=== PATIENT | male | born 1965 | race African-American/Black ===

== ENCOUNTER 2023-05-01 09:40 | Inpatient (IN) ==
[2023-05-01 11:08] LABS: Basophils # (auto) 0.04 K/uL (0.00-0.20); Basophils % (auto) 0.4 %; Eosinophils # (auto) 0.13 K/uL (0.00-0.50); Eosinophils % (auto) 1.1 %; Hematocrit (blood only) 44.1 % (42.0-52.0); Hemoglobin 15.1 g/dl (14.0-18.0); Immature Granulocytes # (auto) 0.03 K/uL (0.01-0.20); Immature Granulocytes % (auto) 0.3 %; Lymphocytes % (auto) 14.1 %; Mean Corpuscular Hemoglobin 30.2 pg (25.0-34.0); Mean Corpuscular Hgb Conc 34.2 g/dL (32.0-36.0); Mean Corpuscular Volume 88.2 fL (80.0-100.0); Mean Platelet Volume 10.4 fL (9.4-12.4); Neutrophils # (auto) 8.61 K/uL (1.40-6.50); Neutrophils % (auto) 76.1 %; Platelet Count 313 K/uL (130-400); RDW Coefficient of Variation 12.4 % (11.5-14.5); RDW Standard Deviation 40.4 fL (36.4-46.3); White Blood Count 11.31 K/ul (4.8-10.8)
[2023-05-01 11:15] LABS: Appearance Urine Clear (Clear); Bacteria Urine Automated Negative (Negative); Blood Urine Negative (Negative); Color Urine Dark Yellow; Epithelial Cell Urine Auto 20-30 /lpf (0-5); Glucose Urine UA Negative (Negative); Ketones Urine Trace (Negative); Leukocyte Esterase Urine Trace (Negative); Nitrite Urine Negative (Negative); Protein Urine Trace (Negative); RBC Urine Automated 0-4 /hpf (0-4); Urobilinogen Urine Negative (Negative)
[2023-05-01 11:19] LABS: Albumin Globulin Ratio 1.2 (0.9-2); Albumin Level 4.5 gm/dl (3.4-5.0); Bilirubin,Total 1.2 mg/dl (0.2-1.0); Calcium 10.2 mg/dl (8.6-10.3); Creatinine Clr Calc Pharmacy 97.7 ml/min; Est GFR (African American) 75.6 ml/min; Est GFR (Non-African American) 65.2 ml/min; Globulin 3.8 gm/dl (2.5-4.0); Total Protein 8.3 gm/dl (6.0-8.3)
[2023-05-01 11:20] LABS: Bilirubin Urine 1+ (Negative)
[2023-05-01] MEDS ORDERED: OPTIRAY 320 125ml IV ONE (11:49)
[2023-05-01] MEDS ORDERED: SODIUM CHLORIDE 0.9% 1,000 ML IV ONE (11:49)
--- NOTE | 2023-05-01 12:01 | Emergency Department Note ---
Impression & Plan Lower abdominal pain, Acute appendicitis, Nausea, Leukocytosis ED Provider Note NAME: YANNICK WREN AGE: 57 SEX: M : 1965 ARRIVES VIA: Walk-In INFORMANT: [Patient] ED PROVIDER(S): [Hal Azul MD] CHIEF COMPLAINT: Abdominal pain HISTORY OF PRESENT ILLNESS: The patient is a 57-year-old male with 3 or 4 days of lower and somewhat right- sided abdominal pain. The pain does not radiate to the back. He had some nausea and decreased appetite but no vomiting. No diarrhea. No fever or chills, no cough or congestion. He has no history of previous abdominal surgery. He has had diverticulitis in the past although, his pain today does not feel like his previous diverticulitis. The patient has been using Tylenol for pain, it has helped a little. PMHx/PSHx/Social Hx: See Below PHYSICAL EXAM: GENERAL: Patient is in no acute distress. HEENT: No acute trauma, normocephalic atraumatic, mucous membranes moist, no nasal congestion. NECK: No stridor, no adenopathy, no meningismus, trachea is midline. LUNGS: Clear to auscultation bilaterally, no wheeze, no rhonchi, breath sounds equal. Breath sounds diminished bilaterally. HEART: Without murmurs gallops or rubs, regular rate and rhythm. ABDOMEN: Soft, tender to the mid lower right abdomen, no distention or peritonitis. EXTREMITIES: No cyanosis, full range of motion of all the joints without pain or difficulty. NEUROLOGIC: Oriented x 3, no acute motor or sensory deficits, no focal weakness. SKIN: No jaundice, no diaphoresis. DIFFERENTIAL DIAGNOSIS: Diverticulitis, appendicitis, viral illness, musculoskeletal pain, UTI, biliary colic, among others. EMERGENCY DEPARTMENT PROCEDURES: MEDICAL DECISION MAKING: There is a mild leukocytosis, this would be consistent with infection. There was a normal hemoglobin and platelet count. No renal failure or significant electrolyte abnormality. No concerning liver enzyme elevation. No evidence for pancreatitis. Urinalysis did not show findings of infection. Abdominal and pelvis CT shows findings of acute appendicitis with an appendicolith. No appendix rupture. On exam, the patient was somewhat tender in the lower abdomen, more so to the right. There was no true peritonitis, the patient was not toxic or febrile. Patient received IV Zosyn as antibiotic coverage. He was given IV Zofran for nausea, IV saline for hydration. I did speak with Dr. Mills of general surgery. The patient will be seen for appendectomy. The patient is aware of his findings, case management was consulted. Prior/Outside records/notes reviewed: Family practice note from 11/05/2022 discussing his ongoing chronic conditions and the plan moving forward. Imaging/x-ray results per my interpretation: Chronic Medical/Social conditions affecting care: Care/Management discussed with: General surgery-Dr. Mills, case management. Level of care consideration(s): After review of the information above and other included data: --I believe the patient requires escalation of care to admission DISPOSITION: Admission with surgical consult Past Med/Surg History Medical History Calculus of left kidney Hyperlipidemia Type 2 diabetes mellitus Hypertension Surgical History H/O oral surgery S/P wisdom tooth extraction S/P tonsillectomy S/P hernia surgery Family History Mother Diabetes Hypertension Denies family history of Ovarian cancer Prostate cancer Myocardial infarction Breast cancer Colorectal cancer Social History Smoking Status: Never smoker Second Hand Exposure: No; Do You Dip or Chew Tobacco: No; Hx Alcohol Use: No Hx Substance Use: No Preferred Language: Honduran Communication Ability: Effective Visual Impairment: No Limitations Hearing Ability: Normal Editorial Director Required: No Beliefs That Will Affect Care: None marital status: Current Living Situation: Alone current occupational status: employed 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 How many Children do You have: 3 Other Information That Helps Us Care for You: No Feels Safe at Home: Yes Childhood Exposure to Second-Hand Smoke: Yes Diet: regular caffeine: Yes during the past year weight has: remained stable Dental Care, Regularly: Yes Physical Activity Frequency: Does not Exercise Seatbelt Use: always Sunscreen Use: No Do you think of yourself as: straight/heterosexual Assistive Devices: Glasses Allergies Allergies Allergy/AdvReac Type Severity Reaction Status Date / Time No Known Allergies Allergy Verified 05/01/23 18:55 Home Meds Home Medications Medication Instructions Recorded Confirmed aspirin 81 mg tablet,delayed 81 mg PO QAM 06/29/19 05/01/23 release multivitamin (Daily Multi-Vitamin 1 tab PO QAM 06/29/19 05/01/23 tablet) omega-3 fatty acids 1,000 mg 1,000 mg PO QAM 06/29/19 05/01/23 capsule (Fish Oil Concentrate) amlodipine 5 mg tablet 5 mg PO QAM 05/01/23 05/01/23 atenolol 100 mg tablet 100 mg PO QAM 05/01/23 05/01/23 lisinopril 20 mg tablet 20 mg PO QAM 05/01/23 05/01/23 lisinopril 20 1 tab PO QAM 05/01/23 05/01/23 mg-hydrochlorothiazide 25 mg tablet metformin 500 mg tablet,extended 1,000 mg PO BID 05/01/23 05/01/23 release 24hr (osmotic) spironolactone 25 mg tablet 25 mg PO QAM 05/01/23 05/01/23 Results & Data (ED) Vital Signs Vital Signs - 24 hr 05/01/23 09:48 05/01/23 12:00 05/01/23 13:24 Temperature 37 C 36.9 C Temperature Source Temporal Artery Scan Oral Pulse Rate 74 Pulse Rate [Right Finger] 78 70 Pulse Rhythm [Right Finger] Regular Regular Pulse Strength [Right Finger] Normal Normal Respiratory Rate 22 22 20 Respiratory Effort / Characteristics Non-Labored Spontaneous Non-Labored Spontaneous Respiratory Depth Normal Normal Normal Respiratory Pattern Regular Regular Regular Blood Pressure 149/100 H Blood Pressure [Left Arm] 144/96 H 147/82 H Blood Pressure Mean 116 Blood Pressure Mean [Left Arm] 112 103 Blood Pressure Position Sitting Blood Pressure Position [Left Arm] Sitting Semi-fowlers Pulse Oximetry 98 97 93 Oxygen Delivery Method Room Air Room Air Room Air Sepsis Recent Fever Within 48 Hours No Sepsis New/Unexplained Change in Mental Status No Sepsis Action Taken by Nursing No Action Required Home Medications Current Medication List: was personally reviewed by me Laboratory Data Attestation: I reviewed the patient's lab results. 05/01/23 10:44 05/01/23 10:44 Lab Results 05/01/23 05/01/23 Range/Units 10:44 13:28 WBC 11.31 H (4.8-10.8) K/ul RBC 5.00 (4.70-6.10) M/uL Hgb 15.1 (14.0-18.0) g/dl Hct 44.1 (42.0-52.0) % MCV 88.2 (80.0-100.0) fL MCH 30.2 (25.0-34.0) pg MCHC 34.2 (32.0-36.0) g/dL RDW Std Deviation 40.4 (36.4-46.3) fL RDW Coeff of Melody 12.4 (11.5-14.5) % Plt Count 313 (130-400) K/uL MPV 10.4 (9.4-12.4) fL Immature Gran % (Auto) 0.3 % Neut % (Auto) 76.1 % Lymph % (Auto) 14.1 % [place] % (Auto) 8.0 % Eos % (Auto) 1.1 % Baso % (Auto) 0.4 % Neut # (Auto) 8.61 H (1.40-6.50) K/uL Lymph # (Auto) 1.60 (1.20-3.40) K/uL [place] # (Auto) 0.90 H (0.11-0.59) K/uL Eos # (Auto) 0.13 (0.00-0.50) K/uL Baso # (Auto) 0.04 (0.00-0.20) K/uL Immature Gran # (Auto) 0.03 (0.01-0.20) K/uL Sodium 136 (136-145) mmol/L Potassium 4.0 (3.5-5.1) mmol/L Chloride 96 L (98-107) mmol/L Carbon Dioxide 33 H (21-32) mmol/L Anion Gap 7 (3-11) BUN 16 (6-23) mg/dl Creatinine 1.23 (0.6-1.4) mg/dl Est Cr Clr Drug Dosing 97.7 ml/min Est GFR ( Amer) 75.6 ml/min Est GFR (Non-Af Amer) 65.2 ml/min BUN/Creatinine Ratio 13.0 (10-20) Glucose 150 H (70-99(Fasting)) mg/dl POC Glucose 163 H (70-99) mg/dl Calcium 10.2 (8.6-10.3) mg/dl Total Bilirubin 1.2 H (0.2-1.0) mg/dl AST 16 (13-39) U/L ALT 20 (7-52) U/L Alkaline Phosphatase 58 (34-104) U/L Total Protein 8.3 (6.0-8.3) gm/dl Albumin 4.5 (3.4-5.0) gm/dl Globulin 3.8 (2.5-4.0) gm/dl Albumin/Globulin Ratio 1.2 (0.9-2) Lipase 20 (11-82) U/L Administered Medications Lactated Ringer's (Lr) 1,000 mls @ 80 mls/hr IV .[id number] GURPREET Stop: 05/31/23 16:29 Last Admin: 05/01/23 18:45 Dose: 80 mls/hr Documented By: IRENA Discontinued Medications Bacitracin (Bacitracin Oint 14 Gm Tube) Confirm Administered Dose 45 appln .ROUTE .STK-MED ONE Stop: 05/01/23 13:28 Last Admin: 05/01/23 16:02 Dose: 45 appln Documented By: [id number] Bupivacaine HCl (Bupivacaine 0.5 % 5 Mg/1 Ml Mpf 30ml Vial) Confirm Administered Dose 30 ml .ROUTE .STK-MED ONE Stop: 05/01/23 13:28 Last Admin: 05/01/23 16:00 Dose: 10 ml Documented By: [id number] Sodium Chloride (Nss) 1,000 mls @ 999 mls/hr IV .Q1H1M ONE Stop: 05/01/23 12:49 Last Infusion: 05/01/23 18:12 Dose: Infused Documented By: Admin: 05/01/23 12:44 Dose: 999 mls/hr Documented By: STEPHANIE Piperacillin Sod/Tazobactam Sod (Zosyn) 4.5 gm in 120 mls @ 240 mls/hr IV NOW ONE Stop: 05/01/23 12:48 Last Infusion: 05/01/23 13:59 Dose: Infused Documented By: Admin: 05/01/23 12:43 Dose: 240 mls/hr Documented By: STEPHANIE Ioversol (Optiray 320 125ml) 89 ml IV ONCE ONE Stop: 05/01/23 11:50 Last Admin: 05/01/23 11:49 Dose: 89 ml Documented By: ABBY Lidocaine HCl (Lidocaine 1% Local 20 Ml Vial) Confirm Administered Dose 20 ml .ROUTE .STK-MED ONE Stop: 05/01/23 13:29 Last Admin: 05/01/23 16:01 Dose: 10 ml Documented By: [id number] Ondansetron HCl (Ondansetron Inj 2 Mg/Ml 2 Ml Vial) 4 mg IV NOW STA Stop: 05/01/23 12:32 Last Admin: 05/01/23 12:43 Dose: 4 mg Documented By: STEPHANIE Imaging Data Radiologist's Impression: Abdomen/Pelvis CT 05/01/23 11:[address] WITH IV CONTRAST CT DOSE: 1437.03 mGy.cm HISTORY: Acute right lower quadrant abdominal pain right sided pain TECHNIQUE: Multiaxial CT images of the abdomen and pelvis were performed following the IV administration of 89 cc of Optiray, A dose lowering technique was utilized adhering to the principles of ALARA. COMPARISON STUDY: 04/11/2022 FINDINGS: Mild cardiomegaly. No acute process of the imaged lower chest. No free air. Unremarkable spleen, pancreas and adrenal glands. Liver measures up to 17.4 cm in length. Hepatic steatosis. No evidence of cirrhosis. Patency of the hepatic and portal veins. Unremarkable gallbladder. No biliary ductal dilation. 1.4 cm nonobstructing calculus in the inferior pole left kidney. Mild cortical scarring with parenchymal thinning of the interpolar right kidney. No ureteral calculi or hydronephrosis. Decompressed urinary bladder with circumferential wall thickening. Atherosclerosis of the abdominal aorta. No lymphadenopathy. No bowel obstruction or bowel wall thickening. Colonic diverticulosis. 1.4 cm mid appendiceal appendicolith. The appendix is dilated and fluid-filled with mucosal hyperemia and wall thickening overall measuring up to 1.7 cm. Periappendiceal inflammation with trace free fluid and reactive adjacent ileocolic lymph nodes. No abscess. Unremarkable soft tissues. No acute fracture. IMPRESSION: 1. Acute appendicitis with appendicolith. 2. No pneumoperitoneum or abscess. 3. Hepatomegaly with hepatic steatosis. 4. Colonic diverticulosis. 5. Left nephrolithiasis. ACT 112: Negative or not required by law. The above report was generated using voice recognition software. It may contain grammatical, syntax or spelling errors. Electronically signed by: Devin Goodrich M.D. 05/01/2023 12:11 PM Discharge Plan Visit Data Chief Complaint: Abdominal Pain Stated Complaint: ABD PAIN, NAUSEA ED Provider: Hal Azul Discharge Problem: Lower abdominal pain, Acute appendicitis, Nausea, Leukocytosis Patient Disposition: Admitted As Inpatient Condition: Fair Discharge Instructions Interventions: ED Discharge Assessment Last Done: 05/01/23 13:12 Discharge Problem: Acute appendicitis Qualifiers: Acute appendicitis type: other Qualified Code(s): K35.890 - Other acute appendicitis without perforation or gangrene Leukocytosis Qualifiers: Leukocytosis type: unspecified Qualified Code(s): D72.829 - Elevated white blood cell count, unspecified
--- NOTE | 2023-05-01 12:12 | CT Scan Report ---
ABDOMEN AND PELVIS CT WITH IV CONTRAST CT DOSE: 1437.03 mGy.cm HISTORY: Acute right lower quadrant abdominal pain right sided pain TECHNIQUE: Multiaxial CT images of the abdomen and pelvis were performed following the IV administrat ion of 89 cc of Optiray, A dose lowering technique was utilized adhering to the principles of ALARA. COMPARISON STUDY: 04/11/2022 FINDINGS: Mild cardiomegaly. No acute process of the imaged lower chest. No free air. Unremarkable sp alanis, pancreas and adrenal glands. Liver measures up to 17.4 cm in length. Hepatic steatosis. No evid ence of cirrhosis. Patency of the hepatic and portal veins. Unremarkable gallbladder. No biliary duct al dilation. 1.4 cm nonobstructing calculus in the inferior pole left kidney. Mild cortical scarring with parenchy mal thinning of the interpolar right kidney. No ureteral calculi or hydronephrosis. Decompressed urin pao bladder with circumferential wall thickening. Atherosclerosis of the abdominal aorta. No lymphade nopathy. No bowel obstruction or bowel wall thickening. Colonic diverticulosis. 1.4 cm mid appendiceal appendi colith. The appendix is dilated and fluid-filled with mucosal hyperemia and wall thickening overall m easuring up to 1.7 cm. Periappendiceal inflammation with trace free fluid and reactive adjacent ileoc olic lymph nodes. No abscess. Unremarkable soft tissues. No acute fracture. IMPRESSION: 1. Acute appendicitis with appendicolith. 2. No pneumoperitoneum or abscess. 3. Hepatomegaly with hepatic steatosis. 4. Colonic diverticulosis. 5. Left nephrolithiasis. ACT 112: Negative or not required by law. The above report was generated using voice recognition software. It may contain grammatical, syntax o r spelling errors. Electronically signed by: Devin Goodrich M.D. 05/01/2023 12:11 PM
[2023-05-01] MEDS ORDERED: PIPERACILLIN/TAZOBACTAM 4.5 GM/120 ML BAG IV ONE (12:19)
[2023-05-01] MEDS ORDERED: ONDANSETRON INJ 2 MG/ML 2 ML VIAL IV STA (12:31)
--- NOTE | 2023-05-01 12:46 | Surgery Consultation ---
Date of Consultation May 01, 2023 Assessment & Plan (1) Acute appendicitis: Assessment: Patient is 57 years old gentleman who presented to ED with a 4-day history lower abdominal pain, with nausea. Patient had a CT scan diagnosis of acute appendicitis with appendicolith. Plan: Based on patient history physical exam, labs and CT scan finding. I recommend to do a laparoscopy appendectomy possible open. I did talk to patient about the benefit the risk and alternate of the procedure I indicated the risks may include prepped not limited such as a bleeding, infection,abscess, injury other organs, CT, DVT, patient understood. They agree to proceed the surgery. Patient signed informed consent. I answered all questions.pre-op iv antibiotic. History of Present Illness Reason for Consultation: Acute appendicitis Requesting Physician: Hal zAul MD History of Present Illness CC: Abdominal pain HPI: Patient is a 57 years old gentleman with a past medical history of obesity, type 2 diabetes, hypertension, obstructive sleep apnea ,PVC, hyperlipidemia, and calculus of the left kidney. Patient presented to ED with 4 days history low abdominal pain. The pain located the right lower quadrant area. the pain is dull. The pain is not radiated to the back. Patient has some nausea. Patient denies vomiting. No diarrhea, fever or chills. Patient had a CT scan diagnosis of acute appendicitis. Allergies Allergy/AdvReac Type Severity Reaction Status Date / Time No Known Allergies Allergy Verified 11/05/22 10:49 Home Medications Medication Instructions Recorded Confirmed Type aspirin 81 mg tablet,delayed 81 mg PO DAILY 06/29/19 11/05/22 History release multivitamin (Daily Multi-Vitamin 1 tab PO DAILY 06/29/19 11/05/22 History tablet) omega-3 fatty acids 1,000 mg 1,000 mg PO DAILY 06/29/19 11/05/22 History capsule (Fish Oil Concentrate) atenolol 100 mg tablet 100 mg PO DAILY #90 tabs 08/13/22 11/05/22 Rx amlodipine 5 mg tablet 5 mg PO DAILY #90 tabs 10/26/22 11/05/22 Rx lisinopril 20 mg tablet 20 mg PO DAILY #90 tabs 10/26/22 11/05/22 Rx spironolactone 25 mg tablet See Rx Instructions .Route 10/26/22 11/05/22 Rx .COMPLEX #30 tabs metformin 500 mg tablet,extended 2,000 mg (4 x 500 mg) PO DAILY 30 11/05/22 11/05/22 Rx release 24hr (osmotic) days #120 tabs lisinopril 20 See Rx Instructions .Route 01/08/23 Rx mg-hydrochlorothiazide 25 mg tablet .COMPLEX #90 tabs amoxicillin 875 mg-potassium 1 tab PO BID #20 tabs 04/07/23 Rx clavulanate 125 mg tablet Patient History Medical History (Updated 05/01/23 @ 12:54 by Jazmin Mills MD) No pertinent past medical history Surgical History H/O oral surgery S/P wisdom tooth extraction S/P tonsillectomy S/P hernia surgery Family History Mother Diabetes Hypertension Denies family history of Ovarian cancer Prostate cancer Myocardial infarction Breast cancer Colorectal cancer Social History Smoking Status: Never smoker Second Hand Exposure: No; Do You Dip or Chew Tobacco: No; Hx Alcohol Use: No Hx Substance Use: No Preferred Language: Kinyarwanda Communication Ability: Effective Visual Impairment: No Limitations Hearing Ability: Normal 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 marital status: Current Living Situation: Alone current occupational status: employed 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 How many Children do You have: 3 Feels Safe at Home: Yes Childhood Exposure to Second-Hand Smoke: Yes Diet: regular caffeine: Yes during the past year weight has: remained stable Dental Care, Regularly: Yes Physical Activity Frequency: Does not Exercise Seatbelt Use: always Sunscreen Use: No Do you think of yourself as: straight/heterosexual Assistive Devices: Glasses Review of Systems Constitutional: Obesity Eyes: as per Subjective / HPI Respiratory: as per Subjective / HPI (Obstructive sleep apnea) Cardiovascular: Additional Comments: HTN, PVC, hyperlipidemia Gastrointestinal: as per Subjective / HPI Genitourinary: + problem reported (Left kidney stone) Neurologic: as per Subjective / HPI Psychiatric: as per Subjective / HPI Endocrine: Type 2 diabetes Hematologic / Lymphatic: as per Subjective / HPI Physical Exam Constitutional: WD/WN, vitals as above Obesity Eyes: PERRL, conjunctivae normal, anicteric sclerae Neck: trachea midline, no thyromegaly Respiratory: normal respiratory effort, lungs clear to auscultation Cardiovascular: RRR, no murmur, no edema Gastrointestinal (Abdomen): soft, tenderness at RLQ, no rebound pain, no distend, BS +. Musculoskeletal: no cyanosis or clubbing, extremities motor strength 5/5 Neurologic: patellar DTR's 2+ bilat, sensation intact Psychiatric: A+Ox3, euthymic affect Results & Data Vital Signs (Past 12 Hours) Vital Signs Temp Pulse Resp BP Pulse Ox O2 Del Method 05/01/23 09:48 37 C 74 22 149/100 H 98 Room Air Laboratory Results Lab Results 05/01/23 05/01/23 Range/Units 10:44 Unknown WBC 11.31 H (4.8-10.8) K/ul RBC 5.00 (4.70-6.10) M/uL Hgb 15.1 (14.0-18.0) g/dl Hct 44.1 (42.0-52.0) % MCV 88.2 (80.0-100.0) fL MCH 30.2 (25.0-34.0) pg MCHC 34.2 (32.0-36.0) g/dL RDW Std Deviation 40.4 (36.4-46.3) fL RDW Coeff of Melody 12.4 (11.5-14.5) % Plt Count 313 (130-400) K/uL MPV 10.4 (9.4-12.4) fL Immature Gran % (Auto) 0.3 % Neut % (Auto) 76.1 % Lymph % (Auto) 14.1 % [place] % (Auto) 8.0 % Eos % (Auto) 1.1 % Baso % (Auto) 0.4 % Neut # (Auto) 8.61 H (1.40-6.50) K/uL Lymph # (Auto) 1.60 (1.20-3.40) K/uL [place] # (Auto) 0.90 H (0.11-0.59) K/uL Eos # (Auto) 0.13 (0.00-0.50) K/uL Baso # (Auto) 0.04 (0.00-0.20) K/uL Immature Gran # (Auto) 0.03 (0.01-0.20) K/uL Sodium 136 (136-145) mmol/L Potassium 4.0 (3.5-5.1) mmol/L Chloride 96 L (98-107) mmol/L Carbon Dioxide 33 H (21-32) mmol/L Anion Gap 7 (3-11) BUN 16 (6-23) mg/dl Creatinine 1.23 (0.6-1.4) mg/dl Est Cr Clr Drug Dosing 97.7 ml/min Est GFR ( Amer) 75.6 ml/min Est GFR (Non-Af Amer) 65.2 ml/min BUN/Creatinine Ratio 13.0 (10-20) Glucose 150 H (70-99(Fasting)) mg/dl Calcium 10.2 (8.6-10.3) mg/dl Total Bilirubin 1.2 H (0.2-1.0) mg/dl AST 16 (13-39) U/L ALT 20 (7-52) U/L Alkaline Phosphatase 58 (34-104) U/L Total Protein 8.3 (6.0-8.3) gm/dl Albumin 4.5 (3.4-5.0) gm/dl Globulin 3.8 (2.5-4.0) gm/dl Albumin/Globulin Ratio 1.2 (0.9-2) Lipase 20 (11-82) U/L Urine Color Dark Yellow Urine Appearance Clear (Clear) Urine pH 6.0 (4.5-7.5) Ur Specific [place] 1.030 (1.000-1.030) Urine Protein Trace H (Negative) Urine Glucose (UA) Negative (Negative) Urine Ketones Trace H (Negative) Urine Blood Negative (Negative) Urine Nitrite Negative (Negative) Urine Bilirubin 1+ H (Negative) Urine Urobilinogen Negative (Negative) Ur Leukocyte Esterase Trace H (Negative) Urine WBC (Auto) 1-5 (0-5) /hpf Urine RBC (Auto) 0-4 (0-4) /hpf U Hyaline Cast (Auto) 1-5 (0-5) /lpf U Epithel Cells (Auto) 20-30 H (0-5) /lpf Urine Bacteria (Auto) Negative (Negative) Diagnostic Findings ABDOMEN AND PELVIS CT WITH IV CONTRAST CT DOSE: 1437.03 mGy.cm HISTORY: Acute right lower quadrant abdominal pain right sided pain TECHNIQUE: Multiaxial CT images of the abdomen and pelvis were performed following the IV administration of 89 cc of Optiray, A dose lowering technique was utilized adhering to the principles of ALARA. COMPARISON STUDY: 04/11/2022 FINDINGS: Mild cardiomegaly. No acute process of the imaged lower chest. No free air. Unremarkable spleen, pancreas and adrenal glands. Liver measures up to 17.4 cm in length. Hepatic steatosis. No evidence of cirrhosis. Patency of the hepatic and portal veins. Unremarkable gallbladder. No biliary ductal dilation. 1.4 cm nonobstructing calculus in the inferior pole left kidney. Mild cortical scarring with parenchymal thinning of the interpolar right kidney. No ureteral calculi or hydronephrosis. Decompressed urinary bladder with circumferential wall thickening. Atherosclerosis of the abdominal aorta. No lymphadenopathy. No bowel obstruction or bowel wall thickening. Colonic diverticulosis. 1.4 cm mid appendiceal appendicolith. The appendix is dilated and fluid-filled with mucosal hyperemia and wall thickening overall measuring up to 1.7 cm. Periappendiceal inflammation with trace free fluid and reactive adjacent ileocolic lymph nodes. No abscess. Unremarkable soft tissues. No acute fracture. IMPRESSION: 1. Acute appendicitis with appendicolith. 2. No pneumoperitoneum or abscess. 3. Hepatomegaly with hepatic steatosis. 4. Colonic diverticulosis. 5. Left nephrolithiasis. ACT 112: Negative or not required by law. The above report was generated using voice recognition software. It may contain grammatical, syntax or spelling errors. Electronically signed by: Devin Goodrich M.D. 05/01/2023 12:11 PM Dictated: 05/01/23 1202 Transcribed: 05/01/23 1202
--- NOTE | 2023-05-01 12:59 | History & Physical Bridge Note ---
Date of Service May 01, 2023 History & Physical Bridge Note I have examined the patient, reviewed the History & Physical and in the interval since the performance of the History & Physical I have noted the following changes of clinical significance: no changes noted
[2023-05-01] MEDS ORDERED: fentaNYL citrate PF 100 MCG/2 ML VIAL IV PRN (13:09)
[2023-05-01] MEDS ORDERED: ATROPINE SULFATE 0.1 MG/ML 10ML SYR IV PRN (13:09)
[2023-05-01] MEDS ORDERED: ONDANSETRON INJ 2 MG/ML 2 ML VIAL IV PRN (13:09)
[2023-05-01] MEDS ORDERED: ePHEDrine sulfate 50 MG/ML AMP IV PRN (13:09)
[2023-05-01] MEDS ORDERED: ACETAMINOPHEN 1000 MG/100 ML IV IV ONE (13:25)
[2023-05-01] MEDS ORDERED: BUPIVACAINE 0.5 % 5 MG/1 ML MPF 30ML VIAL ONE (13:27)
[2023-05-01] MEDS ORDERED: BACITRACIN OINT 14 GM TUBE ONE (13:27)
[2023-05-01] MEDS ORDERED: LIDOCAINE 1% LOCAL 20 ML VIAL ONE (13:28)
--- NOTE | 2023-05-01 13:31 | Anesthesiology Consultation ---
Date of Service May 01, 2023 Assessment & Plan Chart Review Chart Review: Acceptable Risk for Surgery Consults Requested none ASA [id number] Proposed Anesthesia Anesthesia Type: General Risk / Benefits Reviewed With: PT / POA / Parent / Guardian, Accepts Plan and Informed Consent Obtained History Surgery Operation Date: 05/01/23 10:40 Proposed Procedures p Laparoscopic Appendectomy - Jazmin Mills MD Height/Weight Height: 5 ft 10 in Weight: 148 kg Allergies Allergy/AdvReac Type Severity Reaction Status Date / Time No Known Allergies Allergy Verified 11/05/22 10:49 Medications Home Medications Medication Instructions Recorded Confirmed Last Taken aspirin 81 mg tablet,delayed 81 mg PO DAILY 06/29/19 11/05/22 Unknown release multivitamin (Daily Multi-Vitamin 1 tab PO DAILY 06/29/19 11/05/22 Unknown tablet) omega-3 fatty acids 1,000 mg 1,000 mg PO DAILY 06/29/19 11/05/22 Unknown capsule (Fish Oil Concentrate) atenolol 100 mg tablet 100 mg PO DAILY #90 tabs 08/13/22 11/05/22 Unknown amlodipine 5 mg tablet 5 mg PO DAILY #90 tabs 10/26/22 11/05/22 Unknown lisinopril 20 mg tablet 20 mg PO DAILY #90 tabs 10/26/22 11/05/22 Unknown spironolactone 25 mg tablet See Rx Instructions .Route 10/26/22 11/05/22 Unknown .COMPLEX #30 tabs metformin 500 mg tablet,extended 2,000 mg (4 x 500 mg) PO DAILY 30 11/05/22 11/05/22 Unknown release 24hr (osmotic) days #120 tabs lisinopril 20 See Rx Instructions .Route 01/08/23 Unknown mg-hydrochlorothiazide 25 mg tablet .COMPLEX #90 tabs amoxicillin 875 mg-potassium 1 tab PO BID #20 tabs 04/07/23 Unknown clavulanate 125 mg tablet NPO Date Last Intake of Fluids: 04/30/23 Time Last Intake of Fluids: 11:00 Date Last Intake of Solids: 04/30/23 Time Last Intake of Solids: 11:00 Past Medical History Medical History No pertinent past medical history Exercise / Class Metabolic Activity II 4-5 Yardwork/Stairs/Walk up hill Past Family History Family History Mother Diabetes Hypertension Denies family history of Ovarian cancer Prostate cancer Myocardial infarction Breast cancer Colorectal cancer Past Surgical History Surgical History H/O oral surgery S/P wisdom tooth extraction S/P tonsillectomy S/P hernia surgery Past Anesthesia History No Hx of Anesthesia Complications and No Family Hx of Anesthesia Complications History of PONV No Hx of PONV and No Hx of Motion Sickness Social History Smoking Status: Never smoker Do You Dip or Chew Tobacco: No Hx Alcohol Use: No Hx Substance Use: No Physical Exam Vital Signs Last Vital Signs Temp 98.4 F 05/01/23 13:24 Pulse 70 05/01/23 13:24 Resp 20 05/01/23 13:24 BP 147/82 H 05/01/23 13:24 Pulse Ox 93 05/01/23 13:24 O2 Del Method Room Air 05/01/23 13:24 ENMT Mouth: no dentition abnormality Thyromental Distance: > or= 3.5 Finger Breadths Mallampati Class: II Neck normal visual inspection Respiratory normal respiratory effort Auscultation: lungs clear to auscultation bilaterally Cardiovascular Rate/Rhythm: regular rate and regular rhythm Testing Laboratory Results 05/01/23 10:44 05/01/23 10:44 Urine Color Dark Yellow 05/01/23 Unknown Urine Appearance Clear (Clear) 05/01/23 Unknown Urine pH 6.0 (4.5-7.5) 05/01/23 Unknown Ur Specific [place] 1.030 (1.000-1.030) 05/01/23 Unknown Urine Protein Trace (Negative) H 05/01/23 Unknown Urine Glucose (UA) Negative (Negative) 05/01/23 Unknown Urine Ketones Trace (Negative) H 05/01/23 Unknown Urine Nitrite Negative (Negative) 05/01/23 Unknown Ur Leukocyte Esterase Trace (Negative) H 05/01/23 Unknown Urine WBC (Auto) 1-5 /hpf (0-5) 05/01/23 Unknown Urine RBC (Auto) 0-4 /hpf (0-4) 05/01/23 Unknown U Hyaline Cast (Auto) 1-5 /lpf (0-5) 05/01/23 Unknown U Epithel Cells (Auto) 20-30 /lpf (0-5) H 05/01/23 Unknown Urine Bacteria (Auto) Negative (Negative) 05/01/23 Unknown 05/01/23 13:28 POC Glucose 163 H
[2023-05-01] MEDS ORDERED: MIDAZOLAM HCL 1 MG/ML 2ML VIAL ONE (13:40)
[2023-05-01] MEDS ORDERED: fentaNYL citrate PF 100 MCG/2 ML VIAL ONE (13:40)
[2023-05-01] MEDS ORDERED: LIDOCAINE 2% 2 ML VIAL/AMP(20MG/ML) INFIL ONE (13:40)
[2023-05-01] MEDS ORDERED: ROCURONIUM BROMIDE 10 MG/ML 5 ML VIAL IV ONE ×2 (13:40→14:34)
[2023-05-01] MEDS ORDERED: PROPOFOL IV EMULSION 10 MG/ML 20 ML VIAL IV ONE (13:40)
[2023-05-01] MEDS ORDERED: SUCCINYLCHOLINE CHLORIDE 20 MG/ML 10 ML VIAL IV ONE (13:49)
[2023-05-01] MEDS ORDERED: PHENYLEPHRINE 100MCG/ML 10ML SYR IV ONE (14:18)
[2023-05-01] MEDS ORDERED: ePHEDrine sulfate 50 MG/5 ML SYR ONE (14:43)
[2023-05-01] MEDS ORDERED: KETOROLAC 30 MG/ML VIAL ONE (15:53)
[2023-05-01] MEDS ORDERED: SUGAMMADEX SODIUM 200 MG/2 ML VIAL IV ONE (16:00)
[2023-05-01] MEDS ORDERED: ONDANSETRON INJ 2 MG/ML 2 ML VIAL ONE (16:02)
--- NOTE | 2023-05-01 16:11 | Post Operative Brief Note ---
Immediate Post Op Note v1 Date of Surgery May 01, 2023 Pre & Post Diagnosis Operation Date: 05/01/23 10:40 Pre-Op Diagnosis: Acute appendicitis Post-Op Diagnosis: Acute appendicitis I identified the patient and participated in the time-out.: Yes Procedure Operation Date: 05/01/23 10:40 Actual Procedures p Laparoscopic Appendectomy(Not Applicable) - Jazmin Mills MD Surgeon Jazmin Mills MD Environmental Construction Engineer certified ophthalmic surgical assistant Estimated Blood Loss 10 Findings Consistent with Post-Op Diagnosis acute appendicitis, significant inflammation on appendix , some pus around appendix, possible micro-perforation Fluids 1200ml Specimens appendix Drains Hung Catheter and Eliot-Antonio Drain Anesthesia Type General Complications none Disposition Accompanied Patient To Recovery: Yes
[2023-05-01] MEDS ORDERED: HYDROmorphone INJ 0.5 MG/0.5 ML SYR IV PRN (16:16)
[2023-05-01] MEDS ORDERED: LACTATED RINGER'S 1,000 ML IV SCH (16:30)
--- NOTE | 2023-05-01 17:55 | Operative Report ---
Post Operative Report Pre & Post Diagnosis Operation Date: 05/01/23 10:40 Pre-Op Diagnosis: Acute appendicitis Post-Op Diagnosis: Acute appendicitis I identified the patient and participated in the time-out.: Yes Procedure Operation Date: 05/01/23 10:40 Actual Procedures p Laparoscopic Appendectomy(Not Applicable) - Jazmin Mills MD Surgeon Jazmin Mills MD Pattern Mechanic neurosurgical nurse practitioner Estimated Blood Loss 10 Findings Consistent with Post-Op Diagnosis acute appendicitis, significant inflammation on appendix, some pus on surface appendix, possible micro-perforation. Fluids 1200ml Specimens appendix Drains YAMEL x1 Anesthesia Type General Complications none Indications Patient is a 57 years old gentleman presented to ED with a 4-day history lower abdominal pain. Patient had a CT scan diagnosis of acute appendicitis. I recommend to do a laparoscopy appendectomy possible open. I did talk to patient about the benefit the risk and alternate of the procedure. The risks may include but not limited such as a bleeding, infection, abscess. injury other organs. incision hernia, CT, DVT, pt understood, he agreed with the surgery, he signed informed consent, I answered all questions. Description of Procedure After we identified patient to verify procedure. We brought patient to the OR. Put the patient on the supine position on the OR table. Patient received a SCD on bilateral legs to prevent DVT. Also patient received 2 gram cefoxitin IV for prophylactic antibiotic. Patient received general anesthesia without difficulty. pt had Hung catheter insertion to drainage urine. The abdomen was propped and dropped in routine sterile fashion. After timeout. I injections of local anesthesia by using 1% lidocaine mixed with 0.5% Marcaine just above the umbilical area. The make a small incisions as above umbilical, open fascia and peritoneum under direct vision. put The Martinez trocar in. Connected to CO2 to create pneumoperitoneum, the flow rate is 6 L/min. Pressure no more than 14 mmHg. Once get nice pneumoperitoneum. Put the laparoscopy in to take look around the abdomen. Significant inflammation on the right lower quadrant area. then we put other two 5 mm trocars on the left lower quadrant area. one 5 mm trocar at RUQ area. We used a grasper to to hold cecum area. We found the patient had enlarge appendix with inflammation on appendix, some pus on surface of appendix, possible micro-perforation. which confirm diagnosis acute appendicitis. We mobilized the appendix by using a harmonic to take down the appendiceal. I used the 45 mm Endo CUCA staple transection on the base of appendix. With double identified the base of appendix. Recheck and no active bleeding or leak from staplers. I also check stapler line on cecum. I did not feel any remnant appendolithiasis. We remove appendix through the catheter bag. then re-inserted a Martinez trocar IN and connected to CO2 to create pneumoperitoneum again. based on significant inflammation on appendix , possible micro- perforation, I decided to place 10mm YAMEL drainage at near appendix stapler line. 2-0 silk fix the YAMEL at skin. Hemostat is obtained. We removed all trocars under direct vision no active bleeding from trocar site. Pneumoperitoneum was released. Close umbilical incision fascia layer by using 0 Vicryl [id number] x2. Closed subcutaneous layer by using 2-0 Vicryl interrupted. Close skin by using 4-0 Vicryl. Close another 5 mm trocar site the skin only by use of 4-0 Vicryl. Put the dressing on. Remove Hung catheter. Patient tolerated procedure well. All instrument needle sponge count correct x2 in the case. Patient was transferred to recovery room in stable condition. Specimen sent to pathology. After procedure I did talk to patient about the OR finding and the procedure we did. pt understood. I attest to the content of the Intraoperative Record and any orders documented therein. Any exceptions are noted below.
--- NOTE | 2023-05-01 17:59 | Anesthesiology Progress Note ---
Date of Service May 01, 2023 Anesthesia Post Procedure Vital Signs Vital Signs: Temp Pulse Pulse Pulse Resp BP BP 05/01/23 17:25 64 18 05/01/23 17:10 67 21 05/01/23 16:55 37.2 C 70 22 05/01/23 16:45 70 22 05/01/23 16:35 68 22 05/01/23 16:25 36.6 C 74 16 05/01/23 13:24 36.9 C 70 20 147/82 H 05/01/23 12:00 78 22 144/96 H 05/01/23 09:48 37 C 74 22 149/100 H BP Pulse Ox O2 Del Method O2 Flow Rate 05/01/23 17:25 119/65 94 Nasal Cannula 2 05/01/23 17:10 127/73 95 Nasal Cannula 2 05/01/23 16:55 122/74 94 Nasal Cannula 2 05/01/23 16:45 125/77 93 Nasal Cannula 2 05/01/23 16:35 129/79 98 Oxymask 7 05/01/23 16:25 137/79 98 Oxymask 7 05/01/23 13:24 93 Room Air 05/01/23 12:00 97 Room Air 05/01/23 09:48 98 Room Air Transfer of Care Handoff Completed per policy Notes Mental Status: alert / awake / arousable and participated in evaluation Patient Amnestic to Procedure: Yes Nausea / Vomiting: adequately controlled Pain: adequately controlled Airway Patency, RR, SpO2: stable & adequate BP & HR: stable & adequate Hydration State: stable & adequate Anesthetic Complications: no major complications apparent and Pt Satisfied with anesthetic care
[2023-05-01] MEDS: SODIUM CHLORIDE 0.9% 1,000 ML IV SCH (19:30)
[2023-05-01] MEDS: PIPERACILLIN/TAZOBACTAM 4.5 GM in DEXTROSE 5% MINI-B 100 ML IV SCH (20:01)
[2023-05-02] MEDS: oxyCODONE/ACETAMINOPHEN 5mg/325mg TAB PO PRN ×3 (00:03→17:24)
[2023-05-02] MEDS: PIPERACILLIN/TAZOBACTAM 4.5 GM in DEXTROSE 5% MINI-B 100 ML IV SCH ×3 (03:18→19:31)
[2023-05-02 06:42] LABS: Basophils # (auto) 0.02 K/uL (0.00-0.20); Basophils % (auto) 0.2 %; Eosinophils # (auto) 0.08 K/uL (0.00-0.50); Eosinophils % (auto) 0.8 %; Hematocrit (blood only) 38.8 % (42.0-52.0); Hemoglobin 12.7 g/dl (14.0-18.0); Immature Granulocytes # (auto) 0.05 K/uL (0.01-0.20); Immature Granulocytes % (auto) 0.5 %; Lymphocytes # (auto) 0.93 K/uL (1.20-3.40); Lymphocytes % (auto) 8.9 %; Mean Corpuscular Hemoglobin 29.8 pg (25.0-34.0); Mean Corpuscular Hgb Conc 32.7 g/dL (32.0-36.0); Mean Corpuscular Volume 91.1 fL (80.0-100.0); Mean Platelet Volume 10.1 fL (9.4-12.4); Monocytes # (auto) 0.78 K/uL (0.11-0.59); Monocytes % (auto) 7.5 %; Neutrophils # (auto) 8.59 K/uL (1.40-6.50); Neutrophils % (auto) 82.1 %; Platelet Count 262 K/uL (130-400); RDW Coefficient of Variation 12.7 % (11.5-14.5); Red Blood Count 4.26 M/uL (4.70-6.10); White Blood Count 10.45 K/ul (4.8-10.8)
[2023-05-02 06:50] LABS: Albumin Globulin Ratio 1.2 (0.9-2); Albumin Level 3.8 gm/dl (3.4-5.0); BUN Creatinine Ratio 14.9 (10-20); Bilirubin,Total 0.8 mg/dl (0.2-1.0); Calcium 8.8 mg/dl (8.6-10.3); Creatinine Clr Calc Pharmacy 89.7 ml/min; Est GFR (African American) 68.2 ml/min; Est GFR (Non-African American) 58.8 ml/min; Globulin 3.2 gm/dl (2.5-4.0); Potassium 4.3 mmol/L (3.5-5.1)
--- NOTE | 2023-05-02 07:18 | Hospitalist Consultation ---
Date of Consultation May 02, 2023 Assessment & Plan (1) Acute appendicitis: Taken to the OR 05/[address] continues on Zosyn therapy Surgery has started diet clear liquids. Pain is controlled (2) Type 2 diabetes mellitus: typically on metformin, will follow and start SSI if needed (3) Hypertension: typically on amlodipine, atenolol, lisinopril/ hydrochlorothiazide spironolactone currently on hold with lower blood pressure with exception of low-dose atenolol to avoid rebound tachycardia History of Present Illness Attending Physician: Jazmin Mills MD History of Present Illness 57-year-old male presents to the ER with 3 to 4 days of lower abdominal pain on the right side with nausea. History of diabetes controlled with metformin and hypertension. Previous diverticulitis did not feel like this. Patient was afebrile white count was 11.3, CT scan showed acute appendicitis with no pneumoperitoneum or abscess. In the operative report however does cite possibility of microperforation with pus on the surface of the appendix Patient mid on the surgical service medical consultation to control diabetes and hypertension at this time Allergies Allergy/AdvReac Type Severity Reaction Status Date / Time No Known Allergies Allergy Verified 05/01/23 18:55 Home Medications Medication Instructions Recorded Confirmed Type aspirin 81 mg tablet,delayed 81 mg PO QAM 06/29/19 05/01/23 History release multivitamin (Daily Multi-Vitamin 1 tab PO QAM 06/29/19 05/01/23 History tablet) omega-3 fatty acids 1,000 mg 1,000 mg PO QAM 06/29/19 05/01/23 History capsule (Fish Oil Concentrate) amlodipine 5 mg tablet 5 mg PO QAM 05/01/23 05/01/23 History atenolol 100 mg tablet 100 mg PO QAM 05/01/23 05/01/23 History lisinopril 20 mg tablet 20 mg PO QAM 05/01/23 05/01/23 History lisinopril 20 1 tab PO QAM 05/01/23 05/01/23 History mg-hydrochlorothiazide 25 mg tablet metformin 500 mg tablet,extended 1,000 mg PO BID 05/01/23 05/01/23 History release 24hr (osmotic) spironolactone 25 mg tablet 25 mg PO QAM 05/01/23 05/01/23 History Patient History Medical History Calculus of left kidney Hyperlipidemia Type 2 diabetes mellitus Hypertension Surgical History H/O oral surgery S/P wisdom tooth extraction S/P tonsillectomy S/P hernia surgery Family History Mother Diabetes Hypertension Denies family history of Ovarian cancer Prostate cancer Myocardial infarction Breast cancer Colorectal cancer Social History Smoking Status: Never smoker Second Hand Exposure: No; Do You Dip or Chew Tobacco: No; Hx Alcohol Use: No Hx Substance Use: No Preferred Language: Setswana Communication Ability: Effective Visual Impairment: No Limitations Hearing Ability: Normal Racquet Maker Required: No Beliefs That Will Affect Care: None marital status: Current Living Situation: Alone current occupational status: employed 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 How many Children do You have: 3 Other Information That Helps Us Care for You: No Feels Safe at Home: Yes Childhood Exposure to Second-Hand Smoke: Yes Diet: regular caffeine: Yes during the past year weight has: remained stable Dental Care, Regularly: Yes Physical Activity Frequency: Does not Exercise Seatbelt Use: always Sunscreen Use: No Do you think of yourself as: straight/heterosexual Assistive Devices: None Review of Systems Review of Systems: Mild distress and fatigue no headache, no visual changes no speech or swallowing issues no chest pain, pressure or palpitations no shortness of breath, cough or wheezes Mild postoperative abdominal pain, mild nausea without vomiting no dysuria, hematuria or frequency no focal joint pain or swelling no back pain, CVA tenderness or radicular pain no bruising, bleeding or rashes no focal signs of weakness or numbness or altered sensation no complaints of anxiety or depression.. Physical Exam Physical Exam: The patient appeared well nourished and normally developed. Vital signs as documented. Head exam is normocephalic atraumatic Neck is without JVD, thyromegaly, or carotid bruits. Lungs are clear to auscultation, no focal loss of breath sounds Cardiac exam, Rhythm is regular.. No murmurs, rubs or gallops. Abdominal exam reveals normal bowel sounds, soft non tender, no masses drain in RLQ Extremities are nonedematous and both pedal pulses are present Neurologic exam is alert and oriented, no focal loss of strength or sensation Skin is without bruises or rashes Psychologically is without concerns for anxiety or depression.. Results & Data Results & Data Vital Signs (Past 12 Hours) Vital Signs Temp Pulse Resp BP Pulse Ox O2 Del Method O2 Flow Rate 05/02/23 03:12 97.5 F L 57 L 20 109/67 93 Nasal Cannula 2 05/01/23 23:26 97.9 F 64 18 104/60 97 Nasal Cannula 2 05/01/23 20:33 97.5 F L 62 18 107/66 95 Nasal Cannula 2 05/01/23 19:44 97.9 F 70 18 121/66 94 Nasal Cannula 2 05/01/23 19:25 Nasal Cannula 2 Laboratory Results Reviewed CBC reviewed chemistry PG Care Time/CCT Total # of Minutes Spent Total Time Spent with Patient: Total time spent is greater than 50% in coordination of care (as documented) at patient's floor/unit and/or counseling patient: Coding Level of Care Code 64814 IN/OBS CONSULT LVL 3,45M Diagnoses Acute appendicitis K35.890 Acute appendicitis type: other Type 2 diabetes mellitus E11.9 Hypertension I10 (1) Acute appendicitis Acute appendicitis type: other Qualified Code(s): K35.890 - Other acute appendicitis without perforation or gangrene
[2023-05-02] MEDS: SODIUM CHLORIDE 0.9% 1,000 ML IV SCH ×2 (07:56→19:31)
[2023-05-02] MEDS ORDERED: ATENOLOL 25 MG TABLET PO ONE (09:31)
--- NOTE | 2023-05-02 11:05 | Surgery Progress Note ---
Date of Service May 02, 2023 Assessment & Plan (1) Acute appendicitis: Plan: Assessment: Patient is 57 years old gentleman who presented to ED with a 4-day history lower abdominal pain, with nausea. Patient had a CT scan diagnosis of acute appendicitis with appendicolith. Plan: Based on patient history physical exam, labs and CT scan finding. I recommend to do a laparoscopy appendectomy possible open. I did talk to patient about the benefit the risk and alternate of the procedure I indicated the risks may include prepped not limited such as a bleeding, infection,abscess, injury other organs, VA, DVT, patient understood. They agree to proceed the surgery. Patient signed informed consent. I answered all questions.pre-op iv antibiotic. 05/02/2023 11:07 AM F/P S/P lap appy, POD 1, I update to pt about the or finding and the procedure pt had, pt understood, I answered all questions. doing fine, tolerated diet, may D/C home tomorrow, keep YAMEL drainage. will F/U. Admission and Anticipated Discharge Date Admission Date: May 01, 2023 Subjective F/U S/P lap appy, POD 1 pt is doing fine, no significant abdominal pain, tolerated diet, no nausea, no vomiting, no fever. YAMEL 75 ml serous. Review of Systems Constitutional: Obesity Eyes: as per Subjective / HPI Respiratory: as per Subjective / HPI (Obstructive sleep apnea) Cardiovascular: Additional Comments: HTN, PVC, hyperlipidemia Gastrointestinal: as per Subjective / HPI Genitourinary: + problem reported (Left kidney stone) Neurologic: as per Subjective / HPI Psychiatric: as per Subjective / HPI Endocrine: Type 2 diabetes Hematologic / Lymphatic: as per Subjective / HPI Physical Exam Constitutional: WD/WN, vitals as above Eyes: PERRL, conjunctivae normal, anicteric sclerae Neck: trachea midline, no thyromegaly Respiratory: normal respiratory effort, lungs clear to auscultation Cardiovascular: RRR, no murmur, no edema Gastrointestinal (Abdomen): soft, mild tenderness at incision sites, no rebound pain, no distend, all incisions intact, no redness, BS +. YAMEL intact. Musculoskeletal: no cyanosis or clubbing, extremities motor strength 5/5 Neurologic: patellar DTR's 2+ bilat, sensation intact Psychiatric: A+Ox3, euthymic affect Results & Data Vital Signs (Past 12 Hours) Vital Signs Temp Pulse Resp BP Pulse Ox O2 Del Method O2 Flow Rate 05/02/23 10:49 69 127/73 05/02/23 07:50 36.4 C L 62 18 117/75 93 Nasal Cannula 2 05/02/23 07:15 Nasal Cannula 2 05/02/23 03:12 36.4 C L 57 L 20 109/67 93 Nasal Cannula 2 05/01/23 23:26 36.6 C 64 18 104/60 97 Nasal Cannula 2 Laboratory Results Lab Results 05/01/23 05/01/23 05/01/23 Range/Units 10:44 13:28 16:26 WBC 11.31 H (4.8-10.8) K/ul RBC 5.00 (4.70-6.10) M/uL Hgb 15.1 (14.0-18.0) g/dl Hct 44.1 (42.0-52.0) % MCV 88.2 (80.0-100.0) fL MCH 30.2 (25.0-34.0) pg MCHC 34.2 (32.0-36.0) g/dL RDW Std Deviation 40.4 (36.4-46.3) fL RDW Coeff of Melody 12.4 (11.5-14.5) % Plt Count 313 (130-400) K/uL MPV 10.4 (9.4-12.4) fL Immature Gran % (Auto) 0.3 % Neut % (Auto) 76.1 % Lymph % (Auto) 14.1 % [place] % (Auto) 8.0 % Eos % (Auto) 1.1 % Baso % (Auto) 0.4 % Neut # (Auto) 8.61 H (1.40-6.50) K/uL Lymph # (Auto) 1.60 (1.20-3.40) K/uL [place] # (Auto) 0.90 H (0.11-0.59) K/uL Eos # (Auto) 0.13 (0.00-0.50) K/uL Baso # (Auto) 0.04 (0.00-0.20) K/uL Immature Gran # (Auto) 0.03 (0.01-0.20) K/uL Sodium 136 (136-145) mmol/L Potassium 4.0 (3.5-5.1) mmol/L Chloride 96 L (98-107) mmol/L Carbon Dioxide 33 H (21-32) mmol/L Anion Gap 7 (3-11) BUN 16 (6-23) mg/dl Creatinine 1.23 (0.6-1.4) mg/dl Est Cr Clr Drug Dosing 97.7 ml/min Est GFR ( Amer) 75.6 ml/min Est GFR (Non-Af Amer) 65.2 ml/min BUN/Creatinine Ratio 13.0 (10-20) Glucose 150 H (70-99(Fasting)) mg/dl POC Glucose 163 H 159 H (70-99) mg/dl Calcium 10.2 (8.6-10.3) mg/dl Total Bilirubin 1.2 H (0.2-1.0) mg/dl AST 16 (13-39) U/L ALT 20 (7-52) U/L Alkaline Phosphatase 58 (34-104) U/L Total Protein 8.3 (6.0-8.3) gm/dl Albumin 4.5 (3.4-5.0) gm/dl Globulin 3.8 (2.5-4.0) gm/dl Albumin/Globulin Ratio 1.2 (0.9-2) Lipase 20 (11-82) U/L Urine Color Urine Appearance (Clear) Urine pH (4.5-7.5) Ur Specific Carlin (1.000-1.030) Urine Protein (Negative) Urine Glucose (UA) (Negative) Urine Ketones (Negative) Urine Blood (Negative) Urine Nitrite (Negative) Urine Bilirubin (Negative) Urine Urobilinogen (Negative) Ur Leukocyte Esterase (Negative) Urine WBC (Auto) (0-5) /hpf Urine RBC (Auto) (0-4) /hpf U Hyaline Cast (Auto) (0-5) /lpf U Epithel Cells (Auto) (0-5) /lpf Urine Bacteria (Auto) (Negative) 05/01/23 05/02/23 Range/Units Unknown 06:12 WBC 10.45 (4.8-10.8) K/ul RBC 4.26 L (4.70-6.10) M/uL Hgb 12.7 L (14.0-18.0) g/dl Hct 38.8 L (42.0-52.0) % MCV 91.1 (80.0-100.0) fL MCH 29.8 (25.0-34.0) pg MCHC 32.7 (32.0-36.0) g/dL RDW Std Deviation 42.0 (36.4-46.3) fL RDW Coeff of Melody 12.7 (11.5-14.5) % Plt Count 262 (130-400) K/uL MPV 10.1 (9.4-12.4) fL Immature Gran % (Auto) 0.5 % Neut % (Auto) 82.1 % Lymph % (Auto) 8.9 % [place] % (Auto) 7.5 % Eos % (Auto) 0.8 % Baso % (Auto) 0.2 % Neut # (Auto) 8.59 H (1.40-6.50) K/uL Lymph # (Auto) 0.93 L (1.20-3.40) K/uL [place] # (Auto) 0.78 H (0.11-0.59) K/uL Eos # (Auto) 0.08 (0.00-0.50) K/uL Baso # (Auto) 0.02 (0.00-0.20) K/uL Immature Gran # (Auto) 0.05 (0.01-0.20) K/uL Sodium 137 (136-145) mmol/L Potassium 4.3 (3.5-5.1) mmol/L Chloride 97 L (98-107) mmol/L Carbon Dioxide 34 H (21-32) mmol/L Anion Gap 6 (3-11) BUN 20 (6-23) mg/dl Creatinine 1.34 (0.6-1.4) mg/dl Est Cr Clr Drug Dosing 89.7 ml/min Est GFR ( Amer) 68.2 ml/min Est GFR (Non-Af Amer) 58.8 ml/min BUN/Creatinine Ratio 14.9 (10-20) Glucose 160 H (70-99(Fasting)) mg/dl POC Glucose (70-99) mg/dl Calcium 8.8 (8.6-10.3) mg/dl Total Bilirubin 0.8 (0.2-1.0) mg/dl AST 15 (13-39) U/L ALT 18 (7-52) U/L Alkaline Phosphatase 49 (34-104) U/L Total Protein 7.0 (6.0-8.3) gm/dl Albumin 3.8 (3.4-5.0) gm/dl Globulin 3.2 (2.5-4.0) gm/dl Albumin/Globulin Ratio 1.2 (0.9-2) Lipase (11-82) U/L Urine Color Dark Yellow Urine Appearance Clear (Clear) Urine pH 6.0 (4.5-7.5) Ur Specific [place]lin 1.030 (1.000-1.030) Urine Protein Trace H (Negative) Urine Glucose (UA) Negative (Negative) Urine Ketones Trace H (Negative) Urine Blood Negative (Negative) Urine Nitrite Negative (Negative) Urine Bilirubin 1+ H (Negative) Urine Urobilinogen Negative (Negative) Ur Leukocyte Esterase Trace H (Negative) Urine WBC (Auto) 1-5 (0-5) /hpf Urine RBC (Auto) 0-4 (0-4) /hpf U Hyaline Cast (Auto) 1-5 (0-5) /lpf U Epithel Cells (Auto) 20-30 H (0-5) /lpf Urine Bacteria (Auto) Negative (Negative)
[2023-05-03] MEDS: PIPERACILLIN/TAZOBACTAM 4.5 GM in DEXTROSE 5% MINI-B 100 ML IV SCH (03:29)
[2023-05-03] MEDS: SODIUM CHLORIDE 0.9% 1,000 ML IV SCH (07:42)
--- NOTE | 2023-05-03 08:14 | Hospitalist Progress Note ---
Date of Service May 03, 2023 Assessment & Plan (1) Acute appendicitis: Plan: Taken to the OR 05/[address] continues on Zosyn therapy As tolerated advancing diet has had flatus and liquid bowels pain is controlled Postoperative hypoxia improved reinforced deep breathing to reduce atelectasis (2) Type 2 diabetes mellitus: Plan: Returns to metformin at home (3) Hypertension: Plan: typically on amlodipine, atenolol, lisinopril/ hydrochlorothiazide spironolactone Admission and Anticipated Discharge Date Admission Date: May 01, 2023 Subjective Patient doing well going to be released by surgery pain is controlled. Physical Exam Physical Exam: The patient appeared well nourished and normally developed. Vital signs as documented. Head exam is normocephalic atraumatic Neck is without JVD, thyromegaly, or carotid bruits. Lungs are clear to auscultation, no focal loss of breath sounds Cardiac exam, Rhythm is regular.. No murmurs, rubs or gallops. Abdominal exam reveals normal bowel sounds, soft non tender, no masses drain in RLQ patient will go home with drain Extremities are nonedematous and both pedal pulses are present Neurologic exam is alert and oriented, no focal loss of strength or sensation Skin is without bruises or rashes Psychologically is without concerns for anxiety or depression.. Results & Data Results & Data Vital Signs (Past 12 Hours) Vital Signs Temp Pulse Resp BP Pulse Ox O2 Del Method 05/03/23 07:00 99.5 F 94 H 22 157/80 H 89 L Room Air 05/02/23 22:48 Room Air Laboratory Results Reviewed CBC reviewed chemistry PG Care Time/CCT Total # of Minutes Spent Total Time Spent with Patient: Total time spent is greater than 50% in coordination of care (as documented) at patient's floor/unit and/or counseling patient: Coding Level of Care Code 01126 SUB INP/OBS CARE 05/30MIN Diagnoses Acute appendicitis K35.890 Acute appendicitis type: other Type 2 diabetes mellitus E11.9 Hypertension I10 (1) Acute appendicitis Acute appendicitis type: other Qualified Code(s): K35.890 - Other acute appendicitis without perforation or gangrene
[2023-05-03 08:40] LABS: Basophils # (auto) 0.03 K/uL (0.00-0.20); Basophils % (auto) 0.4 %; Eosinophils # (auto) 0.25 K/uL (0.00-0.50); Hematocrit (blood only) 37.7 % (42.0-52.0); Hemoglobin 12.5 g/dl (14.0-18.0); Immature Granulocytes # (auto) 0.03 K/uL (0.01-0.20); Immature Granulocytes % (auto) 0.4 %; Lymphocytes # (auto) 1.56 K/uL (1.20-3.40); Lymphocytes % (auto) 18.8 %; Mean Corpuscular Hemoglobin 30.1 pg (25.0-34.0); Mean Corpuscular Hgb Conc 33.2 g/dL (32.0-36.0); Mean Corpuscular Volume 90.8 fL (80.0-100.0); Monocytes # (auto) 0.56 K/uL (0.11-0.59); Monocytes % (auto) 6.8 %; Neutrophils # (auto) 5.86 K/uL (1.40-6.50); Neutrophils % (auto) 70.6 %; Platelet Count 281 K/uL (130-400); RDW Coefficient of Variation 12.6 % (11.5-14.5); RDW Standard Deviation 42.3 fL (36.4-46.3); Red Blood Count 4.15 M/uL (4.70-6.10); White Blood Count 8.29 K/ul (4.8-10.8)
[2023-05-03 08:52] LABS: BUN Creatinine Ratio 9.5 (10-20); Calcium 8.5 mg/dl (8.6-10.3); Creatinine Clr Calc Pharmacy 95.4 ml/min; Est GFR (African American) 73.4 ml/min; Est GFR (Non-African American) 63.3 ml/min; Potassium 4.1 mmol/L (3.5-5.1)
[2023-05-03] MEDS ORDERED: ATENOLOL 50 MG TABLET PO SCH (09:00)
[2023-05-03] MEDS ORDERED: lisinopril 10 MG TAB PO SCH (09:00)
--- NOTE | 2023-05-03 10:27 | Surgery Progress Note ---
Date of Service May 03, 2023 Assessment & Plan (1) Acute appendicitis: Plan: Assessment: Patient is 57 years old gentleman who presented to ED with a 4-day history lower abdominal pain, with nausea. Patient had a CT scan diagnosis of acute appendicitis with appendicolith. Plan: Based on patient history physical exam, labs and CT scan finding. I recommend to do a laparoscopy appendectomy possible open. I did talk to patient about the benefit the risk and alternate of the procedure I indicated the risks may include prepped not limited such as a bleeding, infection,abscess, injury other organs, [place], DVT, patient understood. They agree to proceed the surgery. Patient signed informed consent. I answered all questions.pre-op iv antibiotic. 05/02/2023 11:07 AM F/P S/P lap appy, POD 1, I update to pt about the or finding and the procedure pt had, pt understood, I answered all questions. doing fine, tolerated diet, may D/C home tomorrow, keep YAMEL drainage. will F/U. 05/03/2023 10:24 AM F/P S/P lap appy, POD 2, doing fine, tolerated diet, D/C home today with YAMEL drainage. nurse teaching pt to empty YAMEL once a day, the post-op care instruction was given. cipro + flagyl for 7 days, percocet 5/325 for pain. F/U me 10 days, Admission and Anticipated Discharge Date Admission Date: May 01, 2023 Subjective F/U S/P lap appy, POD 1 pt is doing fine, no significant abdominal pain, tolerated diet, no nausea, no vomiting, no fever. YAMEL 75 ml serous. 05/03/2023 F/U S/P lap appy, POD 2 pt is doing fine, no significant abdominal pain, tolerated diet, no nausea, no vomiting, no fever. YAMEL 150 ml serous Review of Systems Constitutional: Obesity Eyes: as per Subjective / HPI Respiratory: as per Subjective / HPI (Obstructive sleep apnea) Cardiovascular: Additional Comments: HTN, PVC, hyperlipidemia Gastrointestinal: as per Subjective / HPI Genitourinary: + problem reported (Left kidney stone) Neurologic: as per Subjective / HPI Psychiatric: as per Subjective / HPI Endocrine: Type 2 diabetes Hematologic / Lymphatic: as per Subjective / HPI Physical Exam Constitutional: WD/WN, vitals as above Eyes: PERRL, conjunctivae normal, anicteric sclerae Neck: trachea midline, no thyromegaly Respiratory: normal respiratory effort, lungs clear to auscultation Cardiovascular: RRR, no murmur, no edema Gastrointestinal (Abdomen): soft, mild tenderness at incision site, no rebound pain, no distend, all incisions intact, no redness, BS +. Musculoskeletal: no cyanosis or clubbing, extremities motor strength 5/5 Neurologic: patellar DTR's 2+ bilat, sensation intact Psychiatric: A+Ox3, euthymic affect Results & Data Vital Signs (Past 12 Hours) Vital Signs Temp Pulse Resp BP Pulse Ox O2 Del Method 05/03/23 07:00 37.5 C 94 H 22 157/80 H 89 L Room Air 05/02/23 22:48 Room Air Laboratory Results Lab Results 05/01/23 05/01/23 05/01/23 Range/Units 10:44 13:28 16:26 WBC 11.31 H (4.8-10.8) K/ul RBC 5.00 (4.70-6.10) M/uL Hgb 15.1 (14.0-18.0) g/dl Hct 44.1 (42.0-52.0) % MCV 88.2 (80.0-100.0) fL MCH 30.2 (25.0-34.0) pg MCHC 34.2 (32.0-36.0) g/dL RDW Std Deviation 40.4 (36.4-46.3) fL RDW Coeff of Melody 12.4 (11.5-14.5) % Plt Count 313 (130-400) K/uL MPV 10.4 (9.4-12.4) fL Immature Gran % (Auto) 0.3 % Neut % (Auto) 76.1 % Lymph % (Auto) 14.1 % Shannon % (Auto) 8.0 % Eos % (Auto) 1.1 % Baso % (Auto) 0.4 % Neut # (Auto) 8.61 H (1.40-6.50) K/uL Lymph # (Auto) 1.60 (1.20-3.40) K/uL Shannon # (Auto) 0.90 H (0.11-0.59) K/uL Eos # (Auto) 0.13 (0.00-0.50) K/uL Baso # (Auto) 0.04 (0.00-0.20) K/uL Immature Gran # (Auto) 0.03 (0.01-0.20) K/uL Sodium 136 (136-145) mmol/L Potassium 4.0 (3.5-5.1) mmol/L Chloride 96 L (98-107) mmol/L Carbon Dioxide 33 H (21-32) mmol/L Anion Gap 7 (3-11) BUN 16 (6-23) mg/dl Creatinine 1.23 (0.6-1.4) mg/dl Est Cr Clr Drug Dosing 97.7 ml/min Est GFR ( Amer) 75.6 ml/min Est GFR (Non-Af Amer) 65.2 ml/min BUN/Creatinine Ratio 13.0 (10-20) Glucose 150 H (70-99(Fasting)) mg/dl POC Glucose 163 H 159 H (70-99) mg/dl Calcium 10.2 (8.6-10.3) mg/dl Total Bilirubin 1.2 H (0.2-1.0) mg/dl AST 16 (13-39) U/L ALT 20 (7-52) U/L Alkaline Phosphatase 58 (34-104) U/L Total Protein 8.3 (6.0-8.3) gm/dl Albumin 4.5 (3.4-5.0) gm/dl Globulin 3.8 (2.5-4.0) gm/dl Albumin/Globulin Ratio 1.2 (0.9-2) Lipase 20 (11-82) U/L Urine Color Urine Appearance (Clear) Urine pH (4.5-7.5) Ur Specific [place] (1.000-1.030) Urine Protein (Negative) Urine Glucose (UA) (Negative) Urine Ketones (Negative) Urine Blood (Negative) Urine Nitrite (Negative) Urine Bilirubin (Negative) Urine Urobilinogen (Negative) Ur Leukocyte Esterase (Negative) Urine WBC (Auto) (0-5) /hpf Urine RBC (Auto) (0-4) /hpf U Hyaline Cast (Auto) (0-5) /lpf U Epithel Cells (Auto) (0-5) /lpf Urine Bacteria (Auto) (Negative) 05/01/23 05/02/23 05/03/23 Range/Units Unknown 06:12 08:17 WBC 10.45 8.29 (4.8-10.8) K/ul RBC 4.26 L 4.15 L (4.70-6.10) M/uL Hgb 12.7 L 12.5 L (14.0-18.0) g/dl Hct 38.8 L 37.7 L (42.0-52.0) % MCV 91.1 90.8 (80.0-100.0) fL MCH 29.8 30.1 (25.0-34.0) pg MCHC 32.7 33.2 (32.0-36.0) g/dL RDW Std Deviation 42.0 42.3 (36.4-46.3) fL RDW Coeff of Melody 12.7 12.6 (11.5-14.5) % Plt Count 262 281 (130-400) K/uL MPV 10.1 10.0 (9.4-12.4) fL Immature Gran % (Auto) 0.5 0.4 % Neut % (Auto) 82.1 70.6 % Lymph % (Auto) 8.9 18.8 % Shannon % (Auto) 7.5 6.8 % Eos % (Auto) 0.8 3.0 % Baso % (Auto) 0.2 0.4 % Neut # (Auto) 8.59 H 5.86 (1.40-6.50) K/uL Lymph # (Auto) 0.93 L 1.56 (1.20-3.40) K/uL Shannon # (Auto) 0.78 H 0.56 (0.11-0.59) K/uL Eos # (Auto) 0.08 0.25 (0.00-0.50) K/uL Baso # (Auto) 0.02 0.03 (0.00-0.20) K/uL Immature Gran # (Auto) 0.05 0.03 (0.01-0.20) K/uL Sodium 137 138 (136-145) mmol/L Potassium 4.3 4.1 (3.5-5.1) mmol/L Chloride 97 L 101 (98-107) mmol/L Carbon Dioxide 34 H 33 H (21-32) mmol/L Anion Gap 6 4 (3-11) BUN 20 12 (6-23) mg/dl Creatinine 1.34 1.26 (0.6-1.4) mg/dl Est Cr Clr Drug Dosing 89.7 95.4 ml/min Est GFR ( Amer) 68.2 73.4 ml/min Est GFR (Non-Af Amer) 58.8 63.3 ml/min BUN/Creatinine Ratio 14.9 9.5 L (10-20) Glucose 160 H 146 H (70-99(Fasting)) mg/dl POC Glucose (70-99) mg/dl Calcium 8.8 8.5 L (8.6-10.3) mg/dl Total Bilirubin 0.8 (0.2-1.0) mg/dl AST 15 (13-39) U/L ALT 18 (7-52) U/L Alkaline Phosphatase 49 (34-104) U/L Total Protein 7.0 (6.0-8.3) gm/dl Albumin 3.8 (3.4-5.0) gm/dl Globulin 3.2 (2.5-4.0) gm/dl Albumin/Globulin Ratio 1.2 (0.9-2) Lipase (11-82) U/L Urine Color Dark Yellow Urine Appearance Clear (Clear) Urine pH 6.0 (4.5-7.5) Ur Specific [place] 1.030 (1.000-1.030) Urine Protein Trace H (Negative) Urine Glucose (UA) Negative (Negative) Urine Ketones Trace H (Negative) Urine Blood Negative (Negative) Urine Nitrite Negative (Negative) Urine Bilirubin 1+ H (Negative) Urine Urobilinogen Negative (Negative) Ur Leukocyte Esterase Trace H (Negative) Urine WBC (Auto) 1-5 (0-5) /hpf Urine RBC (Auto) 0-4 (0-4) /hpf U Hyaline Cast (Auto) 1-5 (0-5) /lpf U Epithel Cells (Auto) 20-30 H (0-5) /lpf Urine Bacteria (Auto) Negative (Negative)
--- NOTE | 2023-05-03 12:20 | Surgery Progress Note ---
Date of Service May 03, 2023 Assessment & Plan (1) Acute appendicitis: Plan: Assessment: Patient is 57 years old gentleman who presented to ED with a 4-day history lower abdominal pain, with nausea. Patient had a CT scan diagnosis of acute appendicitis with appendicolith. Plan: Based on patient history physical exam, labs and CT scan finding. I recommend to do a laparoscopy appendectomy possible open. I did talk to patient about the benefit the risk and alternate of the procedure I indicated the risks may include prepped not limited such as a bleeding, infection,abscess, injury other organs, [place], DVT, patient understood. They agree to proceed the surgery. Patient signed informed consent. I answered all questions.pre-op iv antibiotic. 05/02/2023 11:07 AM F/P S/P lap appy, POD 1, I update to pt about the or finding and the procedure pt had, pt understood, I answered all questions. doing fine, tolerated diet, may D/C home tomorrow, keep YAMEL drainage. will F/U. 05/03/2023 10:24 AM F/P S/P lap appy, POD 2, doing fine, tolerated diet, D/C home today with YAMEL drainage. nurse teaching pt to empty YAMEL once a day, the post-op care instruction was given. cipro + flagyl for 7 days, percocet 5/325 for pain. F/U me 10 days, Admission and Anticipated Discharge Date Admission Date: May 01, 2023 Subjective F/U S/P lap appy, POD 1 pt is doing fine, no significant abdominal pain, tolerated diet, no nausea, no vomiting, no fever. YAMEL 75 ml serous. 05/03/2023 F/U S/P lap appy, POD 2 pt is doing fine, no significant abdominal pain, tolerated diet, no nausea, no vomiting, no fever. YAMEL 150 ml serous Review of Systems Constitutional: Obesity Eyes: as per Subjective / HPI Respiratory: as per Subjective / HPI (Obstructive sleep apnea) Cardiovascular: Additional Comments: HTN, PVC, hyperlipidemia Gastrointestinal: as per Subjective / HPI Genitourinary: + problem reported (Left kidney stone) Neurologic: as per Subjective / HPI Psychiatric: as per Subjective / HPI Endocrine: Type 2 diabetes Hematologic / Lymphatic: as per Subjective / HPI Physical Exam Constitutional: WD/WN, vitals as above Eyes: PERRL, conjunctivae normal, anicteric sclerae Neck: trachea midline, no thyromegaly Respiratory: normal respiratory effort, lungs clear to auscultation Cardiovascular: RRR, no murmur, no edema Musculoskeletal: no cyanosis or clubbing, extremities motor strength 5/5 Neurologic: patellar DTR's 2+ bilat, sensation intact Psychiatric: A+Ox3, euthymic affect Results & Data Vital Signs (Past 12 Hours) Vital Signs Temp Pulse Resp BP Pulse Ox O2 Del Method 05/03/23 10:47 Room Air 05/03/23 07:00 37.5 C 94 H 22 157/80 H 89 L Room Air
--- NOTE | 2023-05-03 12:22 | Discharge Summary ---
Date of Service May 03, 2023 Admission HPI Per Admitting Provider admit date 05/01/2023 discharge date 05/03/2023 pre-op diagnosis: acute appendicitis, post-op diagnosis: acute appendicitis HPI: Patient is 57 years old gentleman who presented to ED with a 4-day history right lower quadrant pain. Patient had a CT scan diagnosis of acute appendicitis. we Took patient to the OR. we did a laparoscopy appendectomy with YAMEL drainage, patient tolerated procedure well, after procedure patient transferred to floor,he is doing fine, he tolerated diet, no significant abdominal pain, YAMEL drainage 150 cc serous. Patient will go home today I gave patient postop care instruction patient understand I will follow-up patient in 10 days to remove YAMEL drainage. Patient will empty YAMEL every day to record the output. Admission Exam (Per Admitting) Constitutional WD/WN, vitals as above Eyes PERRL, conjunctivae normal, anicteric sclerae Neck trachea midline, no thyromegaly Respiratory normal respiratory effort, lungs clear to auscultation Cardiovascular RRR, no murmur, no edema Gastrointestinal (Abdomen) soft, no significant tenderness. all incisions intact, no redness, YAMEL intact, Musculoskeletal no cyanosis or clubbing, extremities motor strength 5/5 Neurologic patellar DTR's 2+ bilat, sensation intact Psychiatric A+Ox3, euthymic affect Discharge Data Consultations 05/01/23 12:32 Consult General Surgery Stat 05/01/23 16:16 Consult Hospitalist Routine Procedures Performed Operation Date: 05/01/23 10:40 Actual Procedures p Laparoscopic Appendectomy(Not Applicable) - Jazmin Mills MD Diabetes Follow Up Diabetes Follow Up: follow up Dr. Mills 10 days, Hospital Course (1) Acute appendicitis: Assessment: Patient is 57 years old gentleman who presented to ED with a 4-day history lower abdominal pain, with nausea. Patient had a CT scan diagnosis of acute appendicitis with appendicolith. Plan: Based on patient history physical exam, labs and CT scan finding. I recommend to do a laparoscopy appendectomy possible open. I did talk to patient about the benefit the risk and alternate of the procedure I indicated the risks may include prepped not limited such as a bleeding, infection,abscess, injury other organs, [place], DVT, patient understood. They agree to proceed the surgery. Patient signed informed consent. I answered all questions.pre-op iv antibiotic. 05/02/2023 11:07 AM F/P S/P lap appy, POD 1, I update to pt about the or finding and the procedure pt had, pt understood, I answered all questions. doing fine, tolerated diet, may D/C home tomorrow, keep YAMEL drainage. will F/U. 05/03/2023 10:24 AM F/P S/P lap appy, POD 2, doing fine, tolerated diet, D/C home today with YAMEL drainage. nurse teaching pt to empty YAMEL once a day, the post-op care instruction was given. cipro + flagyl for 7 days, percocet 5/325 for pain. F/U co 10 days,
== END 2023-05-03 14:41 | disposition home or self-care (01) | DRG 398 ==
LOC: ED 09:40 → OR 13:12 → 3N 16:16
DX: Z68.42 Body mass index [BMI] 45.0-49.9, adult; E66.9 Obesity, unspecified; Z79.899 Other long term (current) drug therapy; R09.02 Hypoxemia; Z79.84 Long term (current) use of oral hypoglycemic drugs; Z79.82 Long term (current) use of aspirin; I10 Essential (primary) hypertension; K35.32 Acute appendicitis with perforation, localized peritonitis, and gangrene, without abscess; E11.9 Type 2 diabetes mellitus without complications; G47.33 Obstructive sleep apnea (adult) (pediatric)

== ENCOUNTER 2023-09-16 07:26 | Inpatient (IN) ==
--- NOTE | 2023-09-16 08:00 | Emergency Department Note ---
Impression & Plan Pulmonary edema ADMIT ED Provider Note HPI: History obtained from patient. The patient is a 57-year-old gentleman who presents the emergency department with a chief complaint of shortness of breath. Patient states he has had a cough and some URI symptoms over the past 3 days. Patient states this morning he woke up and felt acutely short of breath. On arrival here to the ED the patient is alert, he was noted to be hypoxic in the 60s in triage and was placed on 6 L nasal cannula oxygen with good improvement in his oxygenation to 92%. Patient denies any chest pain, patient denies any abdominal pain or vomiting. Patient otherwise is not tachypneic and appears to be in no acute distress while on nasal cannula oxygen on my initial assessment. ROS: - Per HPI Differential Diagnosis: Acute CHF exacerbation, pulmonary edema, acute coronary syndrome, pneumonia, COPD, acute bronchitis, pulmonary embolism, amongst other potential pathologies. *Outpatient medications and allergy history reviewed. 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 Lab work shows no leukocytosis, hemoglobin is normal, platelet count is normal, venous blood gas shows normal pH. CMP does not show any critical findings, troponin is slightly elevated at 33.2. EKG per my interpretation does not show any acute ischemic changes. Chest x-ray does show some pattern of fluid overload with pulmonary edema and cardiomegaly. BNP is within normal limits. On my reassessment patient is without tachypnea however he does have borderline oxygen saturations despite 6 L nasal cannula oxygen at 91%. Patient wears BiPAP at night therefore respiratory was consulted and the patient was placed on BiPAP. Patient was also given a dose of IV Lasix. Viral panel testing is positive for parainfluenza. Patient exhibits some mild wheezing and states he has had a cough over the past 3 days. He was also treated with DuoNeb and Solu- Medrol IV. Patient is in agreement for admission. Case was discussed with the on-call hospitalist, Dr. Armas, the patient was placed for admission in stable condition. Consultants/Discussions held with other healthcare providers: -Hospitalist, Dr. Armas -Respiratory therapy Disposition discussion held by myself with: -Patient * CRITICAL CARE TIME: ( 38 ) minutes -Stabilization of patient with hypoxia with oxygen saturation is 68% on room air requiring positive pressure ventilation for improvement, time spent at the bedside, discussion with other physicians, interpretation of diagnostic studies, and arrangement of admission. Diagnosis: 1. Pulmonary edema, acute 2. Hypoxia, acute 3. Hypertension, established 4. Elevated high-sensitivity troponin level, acute 5. Viral upper respiratory infection/parainfluenza 3 PCR testing positive Disposition: Admission Christopher Griffith DO Emergency Medicine Past Med/Surg History Medical History (Updated 09/16/23 @ 13:37 by Christopher Griffith DO) Morbid obesity Obstructive sleep apnea Calculus of left kidney Hyperlipidemia Type 2 diabetes mellitus Hypertension Surgical History (Updated 09/16/23 @ 10:28 by Tulio Armas MD) Hx of appendectomy H/O oral surgery S/P wisdom tooth extraction S/P tonsillectomy S/P hernia surgery inguinal Family History Mother Diabetes Hypertension Denies family history of Ovarian cancer Prostate cancer Myocardial infarction Breast cancer Colorectal cancer Social History (Updated 09/16/23 @ 10:29 by Tulio Armas MD) Smoking Status: Never smoker Second Hand Exposure: No; Do You Dip or Chew Tobacco: No; Hx Alcohol Use: No Hx Substance Use: No Preferred Language: Gambian Communication Ability: Effective Visual Impairment: No Limitations Hearing Ability: Normal Parliamentary Archivist Required: No Beliefs That Will Affect Care: None marital status: Current Living Situation: Alone Current Living Situation Comment: lives in [place] current occupational status: employed current occupation: [employer] How many Children do You have: 3 Other Information That Helps Us Care for You: No Feels Safe at Home: Yes Safety Concerns: Feels Safe At This Time Childhood Exposure to Second-Hand Smoke: Yes Diet: regular caffeine: Yes during the past year weight has: remained stable Dental Care, Regularly: Yes Physical Activity Frequency: Does not Exercise Seatbelt Use: always Sunscreen Use: No Do you think of yourself as: straight/heterosexual Assistive Devices: BiPap and Glasses Allergies Allergies Allergy/AdvReac Type Severity Reaction Status Date / Time No Known Allergies Allergy Verified 05/01/23 18:55 Home Meds Home Medications Medication Instructions Recorded Confirmed aspirin 81 mg tablet,delayed 81 mg PO QAM 06/29/19 09/16/23 release multivitamin (Daily Multi-Vitamin 1 tab PO QAM 06/29/19 09/16/23 tablet) omega-3 fatty acids 1,000 mg 1,000 mg PO QAM 06/29/19 09/16/23 capsule (Fish Oil Concentrate) amlodipine 5 mg tablet 5 mg PO DAILY 09/16/23 09/16/23 atenolol 100 mg tablet 100 mg PO DAILY 09/16/23 09/16/23 lisinopril 20 mg tablet 20 mg PO DAILY 09/16/23 09/16/23 metformin 500 mg tablet,extended 1,000 mg PO BID 09/16/23 09/16/23 release 24 hr spironolactone 25 mg tablet 25 mg PO DAILY 09/16/23 09/16/23 Results & Data (ED) Vital Signs Vital Signs - 24 hr 09/16/23 07:30 09/16/23 07:40 09/16/23 07:49 Temperature 37.2 C Temperature Source Temporal Artery Scan Pulse Rate 105 H Pulse Rate [Left Finger] 101 H Pulse Rhythm Respiratory Rate 24 36 H Respiratory Effort / Characteristics SOB on Exertion Labored SOB on Exertion Respiratory Depth Normal Normal Respiratory Pattern Blood Pressure 211/110 H Blood Pressure [Right Arm] 149/83 H Blood Pressure Mean 143 Blood Pressure Mean [Right Arm] 105 Blood Pressure Position [Right Arm] Sitting Pulse Oximetry 68 L 92 Oxygen Delivery Method Room Air Nasal Cannula Oxygen Flow Rate 6 Fraction of Inspired Oxygen Sepsis Recent Fever Within 48 Hours No Sepsis New/Unexplained Change in Mental Status No Sepsis Action Taken by Nursing No Action Required 09/16/23 07:49 09/16/23 07:57 09/16/23 09:00 Temperature Temperature Source Pulse Rate 97 H 97 H 96 H Pulse Rate [Left Finger] Pulse Rhythm Regular Respiratory Rate 30 H 29 H Respiratory Effort / Characteristics Spontaneous Labored Short of Breath Respiratory Depth Deep Respiratory Pattern Tachypnea Blood Pressure Blood Pressure [Right Arm] Blood Pressure Mean Blood Pressure Mean [Right Arm] Blood Pressure Position [Right Arm] Pulse Oximetry 92 95 Oxygen Delivery Method Nasal Cannula Oxygen Flow Rate 6 Fraction of Inspired Oxygen 40 Sepsis Recent Fever Within 48 Hours Sepsis New/Unexplained Change in Mental Status Sepsis Action Taken by Nursing 09/16/23 09:00 Temperature Temperature Source Pulse Rate Pulse Rate [Left Finger] 102 H Pulse Rhythm Respiratory Rate 32 H Respiratory Effort / Characteristics Respiratory Depth Respiratory Pattern Blood Pressure Blood Pressure [Right Arm] 142/84 H Blood Pressure Mean Blood Pressure Mean [Right Arm] 103 Blood Pressure Position [Right Arm] Sitting Pulse Oximetry 92 Oxygen Delivery Method BiPAP Oxygen Flow Rate Fraction of Inspired Oxygen Sepsis Recent Fever Within 48 Hours Sepsis New/Unexplained Change in Mental Status Sepsis Action Taken by Nursing Laboratory Data 09/16/23 07:45 09/16/23 07:45 Lab Results 09/16/23 09/16/23 09/16/23 Range/Units 07:45 09:32 09:34 WBC 6.91 (4.8-10.8) K/ul RBC 4.80 (4.70-6.10) M/uL Hgb 14.5 (14.0-18.0) g/dl Hct 43.1 (42.0-52.0) % MCV 89.8 (80.0-100.0) fL MCH 30.2 (25.0-34.0) pg MCHC 33.6 (32.0-36.0) g/dL RDW Std Deviation 41.4 (36.4-46.3) fL RDW Coeff of Melody 12.4 (11.5-14.5) % Plt Count 267 (130-400) K/uL MPV 10.0 (9.4-12.4) fL Immature Gran % (Auto) 0.3 % Neut % (Auto) 76.8 % Lymph % (Auto) 13.5 % Dawson % (Auto) 8.2 % Eos % (Auto) 0.9 % Baso % (Auto) 0.3 % Neut # (Auto) 5.31 (1.40-6.50) K/uL Lymph # (Auto) 0.93 L (1.20-3.40) K/uL Dawson # (Auto) 0.57 (0.11-0.59) K/uL Eos # (Auto) 0.06 (0.00-0.50) K/uL Baso # (Auto) 0.02 (0.00-0.20) K/uL Immature Gran # (Auto) 0.02 (0.01-0.20) K/uL PT 11.3 (9.0-12.0) Seconds INR 1.0 (0.9-1.1) VBG pH 7.36 (7.36-7.41) VBG pCO2 57 H (38-50) mmHg VBG pO2 42 mmHg VBG HCO3 32 mmol/L VBG O2 Saturation 70.7 % VBG Base Excess 5.0 mEq/L Sodium 137 (136-145) mmol/L Potassium 3.9 (3.5-5.1) mmol/L Chloride 95 L (98-107) mmol/L Carbon Dioxide 31 (21-32) mmol/L Anion Gap 11 (3-11) BUN 14 (6-23) mg/dl Creatinine 1.16 (0.6-1.4) mg/dl Est Cr Clr Drug Dosing 105.3 ml/min Est GFR ( Amer) 81.1 ml/min Est GFR (Non-Af Amer) 70.0 ml/min BUN/Creatinine Ratio 12.1 (10-20) Glucose 198 H (70-99(Fasting)) mg/dl Calcium 9.3 (8.6-10.3) mg/dl Total Bilirubin 0.6 (0.2-1.0) mg/dl AST 28 (13-39) U/L ALT 30 (7-52) U/L Alkaline Phosphatase 59 (34-104) U/L Troponin I High Sens 33.2 H 36.4 H (0-20) pg/ml B-Natriuretic Peptide 91 (0-100) pg/ml Total Protein 8.0 (6.0-8.3) gm/dl Albumin 4.4 (3.4-5.0) gm/dl Globulin 3.6 (2.5-4.0) gm/dl Albumin/Globulin Ratio 1.2 (0.9-2) Urine Color Yellow Urine Appearance Clear (Clear) Urine pH 6.0 (4.5-7.5) Ur Specific [place] 1.009 (1.000-1.030) Urine Protein Trace H (Negative) Urine Glucose (UA) Negative (Negative) Urine Ketones Negative (Negative) Urine Blood Negative (Negative) Urine Nitrite Negative (Negative) Urine Bilirubin Negative (Negative) Urine Urobilinogen Negative (Negative) Ur Leukocyte Esterase Negative (Negative) Urine WBC (Auto) 0-5 (0-5) /hpf Urine RBC (Auto) 0-2 (0-2) /hpf U Hyaline Cast (Auto) 0-2 (0-2) /lpf U Epithel Cells (Auto) 0-2 (0-2) /hpf Urine Bacteria (Auto) None Seen (None Seen) Adenovirus (PCR) Not Detected (NotDetected) B. pertussis DNA (PCR) Not Detected (NotDetected) B.parapertussis DNA PCR Not Detected (NotDetected) C. pneumoniae DNA (PCR) Not Detected (NotDetected) Coronavirus OC43 (PCR) Not Detected (NotDetected) Coronavirus HKU1 (PCR) Not Detected (NotDetected) Coronavirus 229E (PCR) Not Detected (NotDetected) SARS-CoV-2 (PCR) Not Detected (NotDetected) Coronavirus NL63 (PCR) Not Detected (NotDetected) Human Metapneumovir PCR Not Detected (NotDetected) Influenza Type A (PCR) Not Detected (NotDetected) Influenza Type B (PCR) Not Detected (NotDetected) M. pneumoniae (PCR) Not Detected (NotDetected) Parainfluenza 1 (PCR) Not Detected (NotDetected) Parainfluenza 2 (PCR) Not Detected (NotDetected) Parainfluenza 3 (PCR) DETECTED A (NotDetected) Parainfluenza 4 (PCR) Not Detected (NotDetected) RSV (PCR) Not Detected (NotDetected) Entero/Rhino (PCR) Not Detected (NotDetected) Administered Medications Albuterol (Albut/Ipratrop 3mg/0.5mg Neb 3 Ml Vial) 3 ml NEB QIDR [facility]; Protocol Stop: 10/16/23 11:34 Last Admin: 09/16/23 13:00 Dose: 3 ml Documented By: AN Amlodipine Besylate (Amlodipine Besylate 5 Mg Tab) 5 mg PO DAILY [facility] Stop: 10/16/23 11:34 Last Admin: 09/16/23 12:31 Dose: 5 mg Documented By: RAPHAEL Aspirin (Aspirin 81 Mg Ectab) 81 mg PO QAM [facility] Stop: 10/16/23 11:34 Last Admin: 09/16/23 12:31 Dose: 81 mg Documented By: RAPHAEL Atenolol (Atenolol 50 Mg Tablet) 100 mg PO DAILY [facility] Stop: 10/16/23 11:34 Last Admin: 09/16/23 12:31 Dose: 100 mg Documented By: RAPHAEL Benzonatate (Benzonatate 100 Mg Capsule) 100 mg PO TID [facility] Stop: 10/16/23 13:59 Last Admin: 09/16/23 12:32 Dose: 100 mg Documented By: RAPHAEL Enoxaparin Sodium (Enoxaparin Inj 40 Mg/0.4 Ml Syr) 40 mg SQ Q12H [facility] Stop: 10/16/23 11:59 Last Admin: 09/16/23 12:32 Dose: 40 mg Documented By: RAPHAEL Guaifenesin (Guaifenesin 600 Mg Tabcr) 1,200 mg PO Q12 [facility] Stop: 10/16/23 11:34 Last Admin: 09/16/23 12:31 Dose: 1,200 mg Documented By: RAPHAEL Insulin Aspart (Insulin Aspart Per Unit Charge) 0 units SC [facility] Stop: 10/16/23 11:34 Last Admin: 09/16/23 12:39 Dose: 13 units Documented By: RAPHAEL Co-signed By: MAYE Insulin Glargine (Lantus Per Unit Charge) 20 units SQ [facility] Stop: 10/16/23 11:34 Last Admin: 09/16/23 12:39 Dose: 20 units Documented By: RAPHAEL Co-signed By: MAYE Lisinopril (Lisinopril 20 Mg Tab) 20 mg PO DAILY [facility] Stop: 10/16/23 11:34 Last Admin: 09/16/23 12:31 Dose: 20 mg Documented By: RAPHAEL Discontinued Medications Albuterol (Albut/Ipratrop 3mg/0.5mg Neb 3 Ml Vial) 3 ml NEB NOW STA; Protocol Stop: 09/16/23 09:09 Last Admin: 09/16/23 09:25 Dose: 3 ml Documented By: MANUEL Furosemide (Furosemide 40 Mg/4 Ml Vial) 40 mg IV ONE ONE Stop: 09/16/23 08:59 Last Admin: 09/16/23 09:10 Dose: 40 mg Documented By: MANUEL Methylprednisolone (Methylprednisolone 125 Mg/2 Ml Vial) 125 mg IV NOW STA Stop: 09/16/23 09:08 Last Admin: 09/16/23 09:25 Dose: 125 mg Documented By: MANUEL Imaging Data Radiologist's Impression: Chest X-Ray 09/16/23 07:41 SINGLE VIEW CHEST CLINICAL HISTORY: Dyspnea FINDINGS: 2 AP, portable, upright chest radiographs are obtained. No prior studies are available for comparison at the time of dictation. The heart is enlarged. There is pulmonary vascular congestion. Bilateral airspace opacities likely represent interstitial edema. No large pleural effusion or pneumothorax is seen. The bony thorax is grossly intact. IMPRESSION: 1. Cardiomegaly with evidence of congestive failure. 2. Bilateral airspace opacities likely represent pulmonary edema. Correlate clinically for evidence of a superimposed infectious/inflammatory pneumonitis. Radiographic follow-up to resolution is recommended. ACT 112: Negative or not required by law. Electronically signed by: Hal Cardoso M.D. 09/16/2023 8:15 AM Discharge Plan Visit Data Chief Complaint: Respiratory Problems Stated Complaint: BLOOD O2 LOW ED Provider: Christopher Griffith Discharge Problem: Pulmonary edema Patient Disposition: Admitted As Inpatient Discharge Instructions Interventions: ED Discharge Assessment Last Done: 09/16/23 10:49 Discharge Problem: Pulmonary edema Qualifiers: Chronicity: acute Qualified Code(s): J81.0 - Acute pulmonary edema
[2023-09-16 08:10] LABS: Basophils # (auto) 0.02 K/uL (0.00-0.20); Basophils % (auto) 0.3 %; Eosinophils # (auto) 0.06 K/uL (0.00-0.50); Eosinophils % (auto) 0.9 %; Hematocrit (blood only) 43.1 % (42.0-52.0); Hemoglobin 14.5 g/dl (14.0-18.0); Immature Granulocytes # (auto) 0.02 K/uL (0.01-0.20); Immature Granulocytes % (auto) 0.3 %; Lymphocytes # (auto) 0.93 K/uL (1.20-3.40); Lymphocytes % (auto) 13.5 %; Mean Corpuscular Hemoglobin 30.2 pg (25.0-34.0); Mean Corpuscular Hgb Conc 33.6 g/dL (32.0-36.0); Mean Corpuscular Volume 89.8 fL (80.0-100.0); Monocytes # (auto) 0.57 K/uL (0.11-0.59); Monocytes % (auto) 8.2 %; Neutrophils # (auto) 5.31 K/uL (1.40-6.50); Neutrophils % (auto) 76.8 %; Platelet Count 267 K/uL (130-400); RDW Coefficient of Variation 12.4 % (11.5-14.5); RDW Standard Deviation 41.4 fL (36.4-46.3); White Blood Count 6.91 K/ul (4.8-10.8)
[2023-09-16 08:16] LABS: Prothrombin Time 11.3 Seconds (9.0-12.0)
--- NOTE | 2023-09-16 08:17 | XRay Report ---
SINGLE VIEW CHEST CLINICAL HISTORY: Dyspnea FINDINGS: 2 AP, portable, upright chest radiographs are obtained. No prior studies are available for comparison at the time of dictation. The heart is enlarged. There is pulmonary vascular congestion. B ilateral airspace opacities likely represent interstitial edema. No large pleural effusion or pneumot horax is seen. The bony thorax is grossly intact. IMPRESSION: 1. Cardiomegaly with evidence of congestive failure. 2. Bilateral airspace opacities likely represent pulmonary edema. Correlate clinically for evidence o f a superimposed infectious/inflammatory pneumonitis. Radiographic follow-up to resolution is recomme nded. ACT 112: Negative or not required by law. Electronically signed by: Hal Cardoso M.D. 09/16/2023 8:15 AM
[2023-09-16 08:32] LABS: Albumin Level 4.4 gm/dl (3.4-5.0); Bilirubin,Total 0.6 mg/dl (0.2-1.0); Calcium 9.3 mg/dl (8.6-10.3); Potassium 3.9 mmol/L (3.5-5.1)
[2023-09-16 08:38] LABS: Albumin Globulin Ratio 1.2 (0.9-2); BUN Creatinine Ratio 12.1 (10-20); Creatinine Clr Calc Pharmacy 105.3 ml/min; Est GFR (African American) 81.1 ml/min; Globulin 3.6 gm/dl (2.5-4.0)
[2023-09-16 08:39] LABS: HCO3 VBG 32 mmol/L; Oxygen Saturation VBG 70.7 %; PCO2 VBG 57 mmHg (38-50); PO2 VBG 42 mmHg; pH VBG 7.36 (7.36-7.41)
[2023-09-16 08:44] LABS: Troponin I High Sensitivity 33.2 pg/ml (0-20)
[2023-09-16 08:54] LABS: Adenovirus PCR Not Detected (NotDetected); Bordetella parapertussis PCR Not Detected (NotDetected); Bordetella pertussis PCR Not Detected (NotDetected); Chlamydia pneumoniae PCR Not Detected (NotDetected); Coronavirus 229E PCR Not Detected (NotDetected); Coronavirus CoV-2 (COVID19)PCR Not Detected (NotDetected); Coronavirus HKU1 PCR Not Detected (NotDetected); Coronavirus NL63 PCR Not Detected (NotDetected); Coronavirus OC43PCR Not Detected (NotDetected); Human Metapneumovirus PCR Not Detected (NotDetected); Influenza A PCR Not Detected (NotDetected); Influenza B PCR Not Detected (NotDetected); Mycoplasma pneumoniae PCR Not Detected (NotDetected); Parainfluenza Virus 1 PCR Not Detected (NotDetected); Parainfluenza Virus 2 PCR Not Detected (NotDetected); Parainfluenza Virus 3 PCR DETECTED (NotDetected); Parainfluenza Virus 4 PCR Not Detected (NotDetected); Respiratory Syncytial VirusPCR Not Detected (NotDetected); Rhinovirus/Enterovirus PCR Not Detected (NotDetected)
[2023-09-16] MEDS: FUROSEMIDE 40 MG/4 ML VIAL IV ONE (09:10)
[2023-09-16] MEDS: methylPREDNISolone 125 MG/2 ML VIAL IV STA (09:25)
[2023-09-16] MEDS: ALBUT/IPRATROP 3MG/0.5MG NEB 3 ML VIAL NEB STA (09:25)
[2023-09-16 09:46] LABS: Appearance Urine Clear (Clear); Bacteria Urine Automated None Seen (None Seen); Bilirubin Urine Negative (Negative); Blood Urine Negative (Negative); Cast Urine Automated 0-2 /lpf (0-2); Color Urine Yellow; Epithelial Cell Urine Auto 0-2 /hpf (0-2); Glucose Urine UA Negative (Negative); Ketones Urine Negative (Negative); Leukocyte Esterase Urine Negative (Negative); Nitrite Urine Negative (Negative); Protein Urine Trace (Negative); RBC Urine Automated 0-2 /hpf (0-2); Specific Gravity Urine 1.009 (1.000-1.030); Urobilinogen Urine Negative (Negative); WBC Urine Automated 0-5 /hpf (0-5)
--- NOTE | 2023-09-16 10:09 | History & Physical Report ---
Date of Service September 16, 2023 Assessment & Plan (1) Acute hypoxic respiratory failure: Plan: 2nd to #2 +/- acute CHF/pulmonary edema. Presenting O2 sats in the 60s. Improved with O2 supplementation. Currently on BIPAP; can likely transition back to SC later today to allow eating, etc. For parainfluenza infection - steroids, duonebs, cough meds, droplet precautions, supportive care, etc. For ?pulmonary edema he is already s/p lasix 40mg IV x 1 in ER. BNP noted (normal), but can be normal in diastolic CHF. Order echo. I's and O's. Telemetry. (2) Acute bronchitis due to parainfluenza virus: Plan: s/p Solumedrol 125mg x 1 in ER. Will continue steroids with solumedrol 40mg IV BID with next dose tonight. Scheduled duonebs. Check a procal later today - if elevated could consider antibiotics for superimposed bacterial infection. But hold off on antibiotics for now. Flutter valve/incentive spirometry. Mucinex/tessalon. Droplet precautions. (3) Pulmonary edema: Plan: Question of. Follow UOP response to lasix given in ER. Check echo. If favorable clinical response could consider additional dose of lasix sierra today. If in decompensated CHF likely culprits - markedly elevated BPs, stress of infection, etc. (4) Hypertensive urgency: Plan: Improving already just with instituting BIPAP for respiratory failure, diuresis with lasix, etc. Takes the following meds at home - amlodipine 5mg daily, atenolol 100mg daily, lisinopril 20mg daily, spironolactone 25mg daily, and ?lisinopril-HCTZ? Will continue all meds except for the lisinopril-HCTZ - will research pharmacy records to see if this med is actually being prescribed/taken. (5) Morbid obesity: Plan: BMI 45.8 (6) Obstructive sleep apnea: Plan: Cont BIPAP at HS/naps/prn (7) Type 2 diabetes mellitus: Plan: last hemoglobin was in 2022 check an a1c today lantus 20 units daily now novolog with following parameters -- CF 12, carb ratio 1:4 (8) Hypertension: Plan: as above in #4 (9) Hyperlipidemia: Plan: only on fish oil for such (10) DVT prophylaxis: Plan: lovenox 40mg BID Plan may need PT/OT depending on clinical course History of Present Illness Chief Complaint: shortness of breath, low oxygen levels Primary Care Provider: Brandyn Villalba, DO 57yo male with history of HTN, T2DM, CHRISTIE on BIPAP, and morbid obesity who presents with worsening URI and respiratory symptoms starting this past Saturday. Initial symptoms were runny nose, mild cough, and congestion. He noted a temperature of 99.9 yesterday at home. His appetite was decreased over the weekend. [place] a little achy yesterday/today. He had worsening shortness of breath overnight and into this morning. He had a pulse oximeter at home and checked his O2 sats -- they were in the 60s. This prompted him to come to the ER for evaluation. Upon arrival his O2 sat was 68% in room air. He was placed on NC O2 and was requiring 6 L to maintain his sats in the low 90s. he was ultimately changed to BIPAP 22/02 when his chest x-ray showed possible pulmonary edema. During my visit with him he was on BIPAP. Sats were low 90s. He was able to carry on a full conversation. Nursing staff report he voided 400cc following his IV lasix 40mg. He also was given 125mg of solumedrol IV along with a duoneb. He reported improvement in his breathing with the above. Allergies Allergy/AdvReac Type Severity Reaction Status Date / Time No Known Allergies Allergy Verified 05/01/23 18:55 Home Medications Medication Instructions Recorded Confirmed Type aspirin 81 mg tablet,delayed 81 mg PO QAM 06/29/19 09/16/23 History release multivitamin (Daily Multi-Vitamin 1 tab PO QAM 06/29/19 09/16/23 History tablet) omega-3 fatty acids 1,000 mg 1,000 mg PO QAM 06/29/19 09/16/23 History capsule (Fish Oil Concentrate) amlodipine 5 mg tablet 5 mg PO DAILY 09/16/23 09/16/23 History atenolol 100 mg tablet 100 mg PO DAILY 09/16/23 09/16/23 History lisinopril 20 mg tablet 20 mg PO DAILY 09/16/23 09/16/23 History metformin 500 mg tablet,extended 1,000 mg PO BID 09/16/23 09/16/23 History release 24 hr spironolactone 25 mg tablet 25 mg PO DAILY 09/16/23 09/16/23 History Past Med/Surg History Surgical History (Updated 09/16/23 @ 10:28 by Tulio Armas MD) H/O oral surgery S/P wisdom tooth extraction S/P tonsillectomy S/P hernia surgery inguinal Family History Mother Diabetes Hypertension Denies family history of Ovarian cancer Prostate cancer Myocardial infarction Breast cancer Colorectal cancer Social History (Updated 09/16/23 @ 10:29 by Tulio Armas MD) Smoking Status: Never smoker Second Hand Exposure: No; Do You Dip or Chew Tobacco: No; Hx Alcohol Use: No Hx Substance Use: No Preferred Language: Bhutanese Communication Ability: Effective Visual Impairment: No Limitations Hearing Ability: Normal Career And Transition Teacher Required: No Beliefs That Will Affect Care: None marital status: Current Living Situation: Alone Current Living Situation Comment: lives in [place] current occupational status: employed 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 How many Children do You have: 3 Other Information That Helps Us Care for You: No Feels Safe at Home: Yes Safety Concerns: Feels Safe At This Time Childhood Exposure to Second-Hand Smoke: Yes Diet: regular caffeine: Yes during the past year weight has: remained stable Dental Care, Regularly: Yes Physical Activity Frequency: Does not Exercise Seatbelt Use: always Sunscreen Use: No Do you think of yourself as: straight/heterosexual Assistive Devices: BiPap and Glasses Review of Systems Review of Systems: gen - fever/felt cold on Saturday; poor appetite this eyes - denies any pain or change in vision HENT - runny nose, congestion CV - no chest pain; with coughing his chest hurts; ribs hurt too pulm - cough, congestion, wheezing, shortness of breath, S[place]IAG[place] GI - no abd pain; some diarrhea; no N/V - no dysuria musculo - mild myalgias last 24 hours neuro - some headaches x 2 days endo - does not check BSGs Physical Exam Physical Exam: gen - morbidly obese, mild tachypnea but no retractions by the time of my exam, BIPAP in place, awake/alert eyes - PERRL HENT - mouth with dry MM neck - no JVD, no lymph nodes heart - tachy, s1 s2, no murmur lungs - diffuse mild wheezes b/l, b/l basilar rales, poor airation, tachypnea abd - soft NT ND BS+; no HSM ext - no edema, pulses 2+ b/l neuro - strength 5/5 x 4 exts, DTRs 1+ b/l patellar skin - keratosis pilaris of upper arms; some petechial like lesions on legs b/l psych - a/o x 3 Results & Data Results & Data Vital Signs (Past 12 Hours) Vital Signs Temp Pulse Pulse Resp BP BP Pulse Ox 09/16/23 09:00 102 H 32 H 142/84 H 92 09/16/23 09:00 96 H 29 H 95 09/16/23 07:57 97 H 09/16/23 07:49 97 H 30 H 92 09/16/23 07:40 101 H 36 H 149/83 H 92 09/16/23 07:30 37.2 C 105 H 24 211/110 H 68 L O2 Del Method O2 Flow Rate FiO2 09/16/23 09:00 BiPAP 09/16/23 09:00 40 09/16/23 07:57 09/16/23 07:49 Nasal Cannula 6 09/16/23 07:40 Nasal Cannula 6 09/16/23 07:30 Room Air Laboratory Results Laboratory Results - last 24 hr 09/16/23 09/16/23 09/16/23 07:45 09:32 09:34 WBC 6.91 RBC 4.80 Hgb 14.5 Hct 43.1 MCV 89.8 MCH 30.2 MCHC 33.6 RDW Std Deviation 41.4 RDW Coeff of Melody 12.4 Plt Count 267 MPV 10.0 Immature Gran % (Auto) 0.3 Neut % (Auto) 76.8 Lymph % (Auto) 13.5 [place] % (Auto) 8.2 Eos % (Auto) 0.9 Baso % (Auto) 0.3 Neut # (Auto) 5.31 Lymph # (Auto) 0.93 L [place] # (Auto) 0.57 Eos # (Auto) 0.06 Baso # (Auto) 0.02 Immature Gran # (Auto) 0.02 PT 11.3 INR 1.0 VBG pH 7.36 VBG pCO2 57 H VBG pO2 42 VBG HCO3 32 VBG O2 Saturation 70.7 VBG Base Excess 5.0 Sodium 137 Potassium 3.9 Chloride 95 L Carbon Dioxide 31 Anion Gap 11 BUN 14 Creatinine 1.16 Est Cr Clr Drug Dosing 105.3 Est GFR ( Amer) 81.1 Est GFR (Non-Af Amer) 70.0 BUN/Creatinine Ratio 12.1 Glucose 198 H Calcium 9.3 Total Bilirubin 0.6 AST 28 ALT 30 Alkaline Phosphatase 59 Troponin I High Sens 33.2 H 36.4 H B-Natriuretic Peptide 91 Total Protein 8.0 Albumin 4.4 Globulin 3.6 Albumin/Globulin Ratio 1.2 Urine Color Yellow Urine Appearance Clear Urine pH 6.0 Ur Specific [place] 1.009 Urine Protein Trace H Urine Glucose (UA) Negative Urine Ketones Negative Urine Blood Negative Urine Nitrite Negative Urine Bilirubin Negative Urine Urobilinogen Negative Ur Leukocyte Esterase Negative Urine WBC (Auto) 0-5 Urine RBC (Auto) 0-2 U Hyaline Cast (Auto) 0-2 U Epithel Cells (Auto) 0-2 Urine Bacteria (Auto) None Seen Adenovirus (PCR) Not Detected B. pertussis DNA (PCR) Not Detected B.parapertussis DNA PCR Not Detected C. pneumoniae DNA (PCR) Not Detected Coronavirus OC43 (PCR) Not Detected Coronavirus HKU1 (PCR) Not Detected Coronavirus 229E (PCR) Not Detected SARS-CoV-2 (PCR) Not Detected Coronavirus NL63 (PCR) Not Detected Human Metapneumovir PCR Not Detected Influenza Type A (PCR) Not Detected Influenza Type B (PCR) Not Detected M. pneumoniae (PCR) Not Detected Parainfluenza 1 (PCR) Not Detected Parainfluenza 2 (PCR) Not Detected Parainfluenza 3 (PCR) DETECTED A Parainfluenza 4 (PCR) Not Detected RSV (PCR) Not Detected Entero/Rhino (PCR) Not Detected Diagnostic Findings Chest X-Ray 09/16/23 07:41 SINGLE VIEW CHEST CLINICAL HISTORY: Dyspnea FINDINGS: 2 AP, portable, upright chest radiographs are obtained. No prior studies are available for comparison at the time of dictation. The heart is enlarged. There is pulmonary vascular congestion. Bilateral airspace opacities likely represent interstitial edema. No large pleural effusion or pneumothorax is seen. The bony thorax is grossly intact. IMPRESSION: 1. Cardiomegaly with evidence of congestive failure. 2. Bilateral airspace opacities likely represent pulmonary edema. Correlate clinically for evidence of a superimposed infectious/inflammatory pneumonitis. Radiographic follow-up to resolution is recommended. ACT 112: Negative or not required by law. Electronically signed by: Hal Cardoso M.D. 09/16/2023 8:15 AM EKG - my reading - NSR, PVC, no ST changes Code Status & VTE Plan Code Status full code VTE Prophylaxis Plan VTE Prophylaxis will be ordered: Yes PG Care Time/CCT Total # of Minutes Spent Total Time Spent with Patient: Total time spent is greater than 50% in coordination of care (as documented) at patient's floor/unit and/or counseling patient: Coding Level of Care Code 89501 INT INP/OBS CARE 3/75MIN Diagnoses Acute hypoxic respiratory failure J96.01 Acute bronchitis due to parainfluenza virus J20.4 Pulmonary edema J81.1 Hypertensive urgency I16.0 Morbid obesity E66.01 Obstructive sleep apnea G47.33 Type 2 diabetes mellitus E11.9 Hypertension I10 Hyperlipidemia E78.5 DVT prophylaxis Z29.9
[2023-09-16] MEDS ORDERED: ONDANSETRON INJ 2 MG/ML 2 ML VIAL IV PRN (11:35)
[2023-09-16] MEDS ORDERED: ALUMINUM/MAGNESIUM SUSP 30 ML UDC PO PRN (11:35)
[2023-09-16] MEDS ORDERED: NITROGLYCERIN SL 0.4 MG/TAB TAB SL PRN (11:35)
[2023-09-16] MEDS ORDERED: MAGNESIUM HYDROXIDE SUSP 30 ML UDC PO PRN (11:35)
[2023-09-16] MEDS: amLODIPine BESYLATE 5 MG TAB PO SCH (12:31)
[2023-09-16] MEDS: ASPIRIN 81 MG ECTAB PO SCH (12:31)
[2023-09-16] MEDS: ATENOLOL 50 MG TABLET PO SCH (12:31)
[2023-09-16] MEDS: guaiFENesin 600 MG TABCR PO SCH (12:31)
[2023-09-16] MEDS: lisinopril 20 MG TAB PO SCH (12:31)
[2023-09-16] MEDS: ENOXAPARIN INJ 40 MG/0.4 ML SYR SQ SCH (12:32)
[2023-09-16] MEDS: BENZONATATE 100 MG CAPSULE PO SCH (12:32)
[2023-09-16] MEDS: LANTUS PER UNIT CHARGE SQ SCH (12:39)
[2023-09-16] MEDS: INSULIN ASPART PER UNIT CHARGE SC SCH (12:39)
[2023-09-16] MEDS: ALBUT/IPRATROP 3MG/0.5MG NEB 3 ML VIAL NEB SCH (13:00)
--- NOTE | 2023-09-16 15:10 | Electrocardiogram Report ---
Test Reason : Blood Pressure : / mmHG Vent. Rate : 097 BPM Atrial Rate : 097 BPM P-R Int : 170 ms QRS Dur : 086 ms QT Int : 310 ms P-R-T Axes : 059 -16 078 degrees QTc Int : 393 ms Sinus rhythm with Premature atrial complexes with Aberrant conduction Poor R wave progression, consider anterior [place] vs. lead placement vs. LVH Otherwise normal ECG No previous ECGs available Confirmed by Ravindra Mayo ([id number]) on 09/16/2023 3:10:09 PM Referred By: Brandyn Villalba Confirmed By:Reid Mayo
[2023-09-16 15:51] LABS: Magnesium 1.8 mg/dl (1.7-2.4)
--- NOTE | 2023-09-16 15:56 | XCELERA ---
[id number]
[2023-09-16 15:58] LABS: Troponin I High Sensitivity 37.6 pg/ml (0-20)
[2023-09-16 16:08] LABS: Thyroid Stimulating Hormone 0.231 uIu/ml (0.300-4.500)
[2023-09-16] MEDS: methylPREDNISolone 40 MG in SYRINGE 0 ML IV SCH (20:06)
[2023-09-16] MEDS ORDERED: methylPREDNISolone 10 mg/mL (For Ped Dose < 7mg) IV SCH (21:00)
[2023-09-17] MEDS: OMEGA-3 (PURIFIED FISH OIL) 1 GM CAP PO SCH (08:04)
[2023-09-17] MEDS: MULTIVITAMIN TAB PO SCH (08:04)
[2023-09-17] MEDS: SPIRONOLACTONE 25 MG TAB PO SCH (08:04)
[2023-09-17] MEDS: LANTUS PER UNIT CHARGE SQ SCH (08:12)
--- NOTE | 2023-09-17 08:27 | Hospitalist Progress Note ---
Date of Service September 17, 2023 Assessment & Plan (1) Acute hypoxic respiratory failure: Plan: 57-year-old man with history of sleep apnea admitted with acute hypoxic respiratory failure related to parainfluenza pneumonia. presenting O2 sats in the 60s thought to be volume overloaded and acute heart failure at presentation with severe hypertension, however, after IV diuretics he developed prerenal AARON. TTE was remarkable for diastolic dysfunction but normal CVP on day of admission so heart failure seems to be an unlikely contributor continues to require high flow oxygen per nasal cannula, BiPAP at night. interestingly he is not very symptomatic at this point obtained repeat chest x-ray 09/16 shows persistent bilateral diffuse pulmonary infiltrates per my review of chest x-ray film likely to require home oxygen on discharge anticipate slow improvement from viral pneumonia (2) Parainfluenzal pneumonia: Plan: s/p Solumedrol 125mg x 1 in ER, then continue 40 IV bid - probably changed to oral prednisone tomorrow if no further wheezing -PCT low yesterday, repeat today mildly elevated will check again in the a.m. and defer antibiotics for now Scheduled duonebs. Flutter valve/incentive spirometry. Mucinex/tessalon. (3) AARON (acute kidney injury): Plan: developed AARON on CKD 2 on 09/16 after IV Lasix given on admission presumably prerenal stopped diuretics, 500 mL IV LR, hold lisinopril and hydrochlorothiazide a.m. BMP (4) Hypertensive urgency: Plan: present in ED but improved with instituting BIPAP for respiratory failure, diuresis with lasix Takes the following meds at home - amlodipine 5mg daily, atenolol 100mg daily, lisinopril 20mg daily, spironolactone 25mg daily, and ?lisinopril-HCTZ? normotensive 09/16 Will continue all meds except for the lisinopril-HCTZ - held for AARON (5) Type 2 diabetes mellitus: Plan: A1c near goal 7.6 increase glargine to 25 units daily novolog with following parameters -- CF 12, carb ratio 1:4 Plan Morbid obesity with BMI 45 CHRISTIE on nocturnal bipap Abnormal TSH - mildly low with normal fT4 - likely euthyroid sick, repeat TSH as outpatient HTN - see above HLD - fish oil DVT ppx - enox 40 bid may need Home oxygen Admission and Anticipated Discharge Date Admission Date: September 16, 2023 Subjective still is coughing feels much better less short of breath no chest pain urine was dark this morning Physical Exam 2 Physical Exam: PHYSICAL EXAMINATION Last 24h vital signs reviewed, see documentation in flowsheet General: comfortable appearing, no distress, looks pretty well sitting on edge of bed HEENT: Normocephalic, atraumatic, pupils round and equal, sclerae anicteric, no conjunctival injection, moist mucus membranes Lungs: Normal respiratory effort. fine crackles posteriorly bilaterally all reinoso no wheezing nonlabored Heart: Regular rate and rhythm, no murmurs. No JVD Abdomen: Soft, nontender, nondistended. Bowel sounds present. Extremities: Warm, dry, well-perfused. No extremity edema. Neuro: Alert and oriented x 4, face symmetric, moves 4 extremities well Psych: Normal affect and behavior Results & Data Results & Data Vital Signs (Past 12 Hours) Vital Signs Temp Pulse Pulse Pulse Resp BP Pulse Ox 09/17/23 07:58 36.6 C 63 20 154/71 H 97 09/17/23 07:07 66 20 93 09/17/23 03:16 22 94 09/17/23 03:05 36.6 C 65 16 114/79 95 09/17/23 00:00 09/16/23 22:58 36.3 C L 69 20 108/73 92 09/16/23 22:26 81 14 93 09/16/23 21:07 09/16/23 20:36 70 19 96 O2 Del Method O2 Flow Rate FiO2 09/17/23 07:58 High Flow Nasal Cannula 8 09/17/23 07:07 Nasal Cannula 8 09/17/23 03:16 40 09/17/23 03:05 BiPAP 09/17/23 00:00 BiPAP 40 09/16/23 22:58 BiPAP 09/16/23 22:26 40 09/16/23 21:07 BiPAP, High Flow Nasal Cannula 09/16/23 20:36 40 Laboratory Results 09/16/23 07:45 09/17/23 09:30 PG Care Time/CCT Total # of Minutes Spent Total Time Spent with Patient: Total time spent is greater than 50% in coordination of care (as documented) at patient's floor/unit and/or counseling patient: Coding Level of Care Code 02629 SUB INP/OBS CARE 3/50MIN Diagnoses Acute hypoxic respiratory failure J96.01 Parainfluenzal pneumonia J12.2 AARON (acute kidney injury) N17.9 Hypertensive urgency I16.0 Type 2 diabetes mellitus E11.9
[2023-09-17] MEDS ORDERED: LISINOPRIL/HCTZ 20/25MG 1 TAB PO SCH (09:00)
[2023-09-17 10:05] LABS: Estimated Average Glucose 171 mg/dl; Hemoglobin A1C 7.6 % (4.5-5.6)
[2023-09-17 10:10] LABS: BUN Creatinine Ratio 21.3 (10-20); Calcium 9.3 mg/dl (8.6-10.3); Creatinine Clr Calc Pharmacy 61.7 ml/min; Est GFR (African American) 42.8 ml/min; Est GFR (Non-African American) 36.9 ml/min; Potassium 4.8 mmol/L (3.5-5.1)
[2023-09-17] MEDS: ACETAMINOPHEN 325 MG TAB PO PRN (12:20)
--- NOTE | 2023-09-17 13:11 | XRay Report ---
SINGLE VIEW CHEST CLINICAL HISTORY: Respiratory failure FINDINGS: An AP, portable, upright chest radiograph is compared to study dated 09/16/2023. The heart i s enlarged noting atherosclerotic calcification of the thoracic area. There is evidence of congestive failure and pulmonary edema. No large pleural effusion or pneumothorax is seen. The skeletal structu res are osteopenic. The bony thorax is grossly intact. IMPRESSION: Cardiomegaly with evidence of congestive failure and pulmonary edema. This has improved a s compared to yesterday. ACT 112: Negative or not required by law. Electronically signed by: Hal Cardoso M.D. 09/17/2023 1:09 PM
[2023-09-17] MEDS: LACTATED RINGER'S 500 ML IV ONE (14:29)
[2023-09-18 07:13] LABS: BUN Creatinine Ratio 29.2 (10-20); Calcium 9.1 mg/dl (8.6-10.3); Creatinine Clr Calc Pharmacy 52.3 ml/min; Est GFR (African American) 34.9 ml/min; Est GFR (Non-African American) 30.1 ml/min; Potassium 4.4 mmol/L (3.5-5.1)
[2023-09-18] MEDS: SODIUM CHLORIDE 0.9% 500 ML IV SCH (10:36)
--- NOTE | 2023-09-18 10:37 | Ultrasound Report ---
RENAL ULTRASOUND HISTORY: Acute kidney injury AARON COMPARISON: CT 05/01/2023 FINDINGS: Right kidney: 10.4 cm. No hydronephrosis. Normal corticomedullary differentiation. Mild cortical scar ring of the interpolar right kidney redemonstrated. Left kidney: 10.5 cm. 1.4 cm nonobstructing calculus of the inferior pole left kidney again seen. No hydronephrosis. Normal corticomedullary differentiation and cortical thickness. Bladder: Partial distention. The bilateral ureteral jets were not identified. Hepatic steatosis. IMPRESSION: 1. Nonobstructing left nephrolithiasis. 2. No hydronephrosis. 3. Hepatic steatosis. ACT 112: Negative or not required by law. Electronically signed by: Devin Goodrich M.D. 09/18/2023 10:35 AM
[2023-09-18 13:46] LABS: Appearance Urine Clear (Clear); Bilirubin Urine Negative (Negative); Blood Urine Negative (Negative); Color Urine Yellow; Glucose Urine UA Negative (Negative); Ketones Urine Negative (Negative); Leukocyte Esterase Urine Negative (Negative); Nitrite Urine Negative (Negative); Protein Urine Negative (Negative); Specific Gravity Urine 1.019 (1.000-1.030); Urobilinogen Urine Negative (Negative)
[2023-09-18 14:12] LABS: Creatinine Urine Random 184.1 mg/dl
--- NOTE | 2023-09-18 17:34 | Hospitalist Progress Note ---
Date of Service September 18, 2023 Assessment & Plan (1) Acute hypoxic respiratory failure: Plan: 57-year-old man with history of sleep apnea admitted with acute hypoxic respiratory failure related to parainfluenza pneumonia. presenting O2 sats in the 60s thought to be volume overloaded and acute heart failure at presentation with severe hypertension, however, after IV diuretics he developed prerenal AARON. TTE was remarkable for diastolic dysfunction but normal CVP on day of admission so heart failure seems to be an unlikely contributor continues to require oxygen per nasal cannula but improved from 8L--6L today, BiPAP at night. stopped steroids since no evidence of bronchospasm and is improving consider noncontrast chest CT. Considered PE but has no chest pain, no hx VTE, no leg or calf swelling or pain so viral pneumonia seems more likely diagnosis. Can't get CTA until renal function improves. likely to require home oxygen on discharge anticipate slow improvement from viral pneumonia (2) Parainfluenzal pneumonia: Plan: s/p Solumedrol 125mg x 1 in ER, then 40 IV bid through 09/16 -procal minimally elevated with flat trend Scheduled duonebs. Flutter valve/incentive spirometry. Mucinex/tessalon. (3) AARON (acute kidney injury): Plan: developed AARON on CKD 2 on 09/16 after IV Lasix given on admission -BUN/Cr worse today now 2.33 but UOP improved - had 1200 out first half of today -ordered renal US and was neg for obstruction, nonobstructing L nephrolithiasis and hepatic steatosis noted -IV LR given yesterday. UA bland, FeNa 0.4% c/w prerenal - ordered continuous IVF, AM BMP (4) Hypertensive urgency: Plan: present in ED but improved with instituting BIPAP for respiratory failure, diuresis with lasix Takes the following meds at home - amlodipine 5mg daily, atenolol 100mg daily, lisinopril 20mg daily, spironolactone 25mg daily, and ?lisinopril-HCTZ? normotensive 09/17 Will continue all meds except for the lisinopril-HCTZ - held for AARON (5) Type 2 diabetes mellitus: Plan: A1c near goal 7.6 increase glargine to 25 units daily novolog with following parameters -- CF 12, carb ratio 1:4 -BG at goal Plan Morbid obesity with BMI 45 CHRISTIE on nocturnal bipap Abnormal TSH - mildly low with normal fT4 - likely euthyroid sick, repeat TSH as outpatient HTN - see above HLD - fish oil DVT ppx - enox 40 bid may need Home oxygen Admission and Anticipated Discharge Date Admission Date: September 16, 2023 Subjective Slowly improving, not short of breath URI sx and malaise have resolved. Dyspnea much improved since ED Physical Exam 2 Physical Exam: PHYSICAL EXAMINATION Last 24h vital signs reviewed, see documentation in flowsheet General: comfortable appearing, no distress, sitting in bed HEENT: Normocephalic, atraumatic, pupils round and equal, sclerae anicteric, no conjunctival injection, moist mucus membranes Lungs: nonlabored, fine crackles bilaterally post all reinoso, slight anteriorly, no wheezing Heart: Regular rate and rhythm, no murmurs. No JVD Abdomen: Soft, nontender, nondistended. Bowel sounds present. Extremities: Warm, dry, well-perfused. No extremity edema. Neuro: Alert and oriented x 4, face symmetric, moves 4 extremities well Psych: Normal affect and behavior Results & Data Results & Data Vital Signs (Past 12 Hours) Vital Signs Temp Pulse Pulse Pulse Resp BP Pulse Ox 09/18/23 15:49 36.5 C 61 20 104/66 96 09/18/23 14:19 64 16 94 09/18/23 11:10 66 18 94 09/18/23 11:07 36.5 C 62 20 105/67 94 09/18/23 09:59 53 L 09/18/23 09:58 09/18/23 07:32 36.7 C 64 20 109/69 98 09/18/23 07:03 65 18 92 O2 Del Method O2 Flow Rate 09/18/23 15:49 Nasal Cannula 6.0 09/18/23 14:19 Nasal Cannula 6 09/18/23 11:10 Nasal Cannula 8 09/18/23 11:07 Nasal Cannula 8.0 09/18/23 09:59 09/18/23 09:58 Nasal Cannula 8 09/18/23 07:32 High Flow Nasal Cannula 8.0 09/18/23 07:03 Nasal Cannula 8 Laboratory Results 09/16/23 07:45 09/18/23 06:22 PG Care Time/CCT Total # of Minutes Spent Total Time Spent with Patient: Total time spent is greater than 50% in coordination of care (as documented) at patient's floor/unit and/or counseling patient: Coding Level of Care Code 14479 SUB INP/OBS CARE 3/50MIN Diagnoses Acute hypoxic respiratory failure J96.01 Parainfluenzal pneumonia J12.2 AARON (acute kidney injury) N17.9 Hypertensive urgency I16.0 Type 2 diabetes mellitus E11.9
[2023-09-18] MEDS: SODIUM CHLORIDE 0.9% 1,000 ML IV SCH (20:40)
[2023-09-19 07:56] LABS: BUN Creatinine Ratio 40.6 (10-20); Calcium 8.6 mg/dl (8.6-10.3); Creatinine Clr Calc Pharmacy 78.9 ml/min; Est GFR (African American) 57.2 ml/min; Est GFR (Non-African American) 49.3 ml/min; Potassium 3.8 mmol/L (3.5-5.1)
--- NOTE | 2023-09-19 16:40 | Hospitalist Progress Note ---
Date of Service September 19, 2023 Assessment & Plan (1) Acute hypoxic respiratory failure: Plan: 57-year-old man with history of sleep apnea admitted with acute hypoxic respiratory failure related to parainfluenza pneumonia. presenting O2 sats in the 60s thought to be volume overloaded and acute heart failure at presentation with severe hypertension, however, after IV diuretics he developed prerenal AARON. TTE was remarkable for diastolic dysfunction but normal CVP on day of admission so heart failure seems to be an unlikely contributor continues to require oxygen per nasal cannula but improved from 8L-->4L today, BiPAP at night. stopped steroids since no evidence of bronchospasm and is improving good improvement in hypoxia and essentially resolution of symptoms in last 48h. continue supportive care duonebs prn Flutter valve/incentive spirometry. Mucinex/tessalon. (2) Parainfluenzal pneumonia: Plan: s/p Solumedrol 125mg x 1 in ER, then 40 IV bid through 09/16 -procal minimally elevated with flat trend -see above (3) AARON (acute kidney injury): Plan: developed AARON on CKD 2 on 09/16 after IV Lasix given on admission -ordered renal US and was neg for obstruction, nonobstructing L nephrolithiasis and hepatic steatosis noted UA bland, FeNa 0.4% c/w prerenal -resolved as of today after IV fluids, Cr at baseline 1.5 -continue holding PIPE/HCTZ for now (4) Hypertensive urgency: Plan: present in ED but improved with instituting BIPAP for respiratory failure, diuresis with lasix Takes the following meds at home - amlodipine 5mg daily, atenolol 100mg daily, lisinopril 20mg daily, spironolactone 25mg daily, and ?lisinopril-HCTZ? normotensive 09/18 Will continue all meds except for the lisinopril-HCTZ - held for AARON (5) Type 2 diabetes mellitus: Plan: A1c near goal 7.6 decrease glargine loosen CF/Cr -BG overcontrolled Plan Morbid obesity with BMI 45 CHRISTIE on nocturnal bipap Abnormal TSH - mildly low with normal fT4 - likely euthyroid sick, repeat TSH as outpatient HTN - see above HLD - fish oil DVT ppx - enox 40 bid Admission and Anticipated Discharge Date Admission Date: September 16, 2023 Subjective not short of breath, feels better, pretty normal, O2 down to 4L coughing less, urinating a lot Physical Exam 2 Physical Exam: PHYSICAL EXAMINATION Last 24h vital signs reviewed, see documentation in flowsheet General: comfortable appearing, no distress, sitting in bed HEENT: Normocephalic, atraumatic, pupils round and equal, sclerae anicteric, no conjunctival injection, moist mucus membranes Lungs: nonlabored, fine crackles bilaterally post all reinoso, clearing in both apices, anteriorly clear Heart: Regular rate and rhythm, no murmurs. No JVD Abdomen: Soft, nontender, nondistended. Bowel sounds present. Extremities: Warm, dry, well-perfused. No extremity edema. Neuro: Alert and oriented x 4, face symmetric, moves 4 extremities well Psych: Normal affect and behavior Results & Data Results & Data Vital Signs (Past 12 Hours) Vital Signs Temp Pulse Pulse Resp BP Pulse Ox O2 Del Method 09/19/23 16:04 61 18 92 Nasal Cannula 09/19/23 11:03 36.6 C 68 16 114/71 94 Nasal Cannula 09/19/23 11:00 68 16 94 Nasal Cannula 09/19/23 07:46 36.6 C 60 19 118/79 97 Nasal Cannula 09/19/23 07:27 54 L 09/19/23 07:19 68 16 94 Nasal Cannula 09/19/23 06:58 Nasal Cannula O2 Flow Rate 09/19/23 16:04 4 09/19/23 11:03 5.0 09/19/23 11:00 5 09/19/23 07:46 5.0 09/19/23 07:27 09/19/23 07:19 6 09/19/23 06:58 7 Laboratory Results 09/16/23 07:45 09/19/23 07:02 PG Care Time/CCT Total # of Minutes Spent Total Time Spent with Patient: Total time spent is greater than 50% in coordination of care (as documented) at patient's floor/unit and/or counseling patient: Coding Level of Care Code 38226 SUB INP/OBS CARE 2/35MIN Diagnoses Acute hypoxic respiratory failure J96.01 Parainfluenzal pneumonia J12.2 AARON (acute kidney injury) N17.9 Hypertensive urgency I16.0 Type 2 diabetes mellitus E11.9
[2023-09-20] MEDS: LANTUS PER UNIT CHARGE SQ SCH (09:58)
[2023-09-20] MEDS: CARBOHYDRATES FOR HYPOGLYCEMIA PO PRN (16:20)
--- NOTE | 2023-09-20 16:45 | Hospitalist Progress Note ---
Date of Service September 20, 2023 Assessment & Plan (1) Acute hypoxic respiratory failure: Plan: 57-year-old man with history of sleep apnea admitted with acute hypoxic respiratory failure related to parainfluenza pneumonia. presenting O2 sats in the 60s thought to be volume overloaded and acute heart failure at presentation with severe hypertension and pulmonary edema pattern on chest x-ray, however, after IV diuretics on day 1 he developed prerenal AARON. TTE was remarkable for diastolic dysfunction but normal CVP on day of admission so heart failure unlikely. Initially treated with steroids but stopped because evidence of bronchospasm and is improving. initially required high flow O2, today on 1-2L pnc and sats 88-91% on RA, BiPAP at night. duonebs prn Flutter valve/incentive spirometry. Mucinex/tessalon. anticipate home tomorrow (2) Parainfluenzal pneumonia: Plan: s/p Solumedrol 125mg x 1 in ER, then 40 IV bid through 09/16 -procal minimally elevated with flat trend -see above (3) AARON (acute kidney injury): Plan: developed AARON on CKD 2 on 09/16 after IV Lasix given on admission. Cr dejuan to peak of 2.33 -ordered renal US and was neg for obstruction, nonobstructing L nephrolithiasis and hepatic steatosis noted UA bland, FeNa 0.4% c/w prerenal -resolved as of 09/18 after IV fluids, Cr at baseline 1.5 -continue holding PIPE and spironolactone for one week then resume (4) Hypertensive urgency: Plan: present in ED but improved with instituting BIPAP for respiratory failure, diuresis with lasix Takes the following meds at home - amlodipine 5mg daily, atenolol 100mg daily, lisinopril 20mg daily, spironolactone 25mg daily -cont atenolol, amlodipine. lisinopril/michael held (5) Type 2 diabetes mellitus: Plan: A1c near goal 7.6 hypoglycemic this afternoon - stop glargine loosened CF/Cr 09/18 -BG overcontrolled Plan Morbid obesity with BMI 45 CHRISTIE on nocturnal bipap Abnormal TSH - mildly low with normal fT4 - likely euthyroid sick, repeat TSH as outpatient HTN - see above HLD - fish oil DVT ppx - enox 40 bid Admission and Anticipated Discharge Date Admission Date: September 16, 2023 Subjective feels well does not feel short of breath minimal coughing no wheezing, no cons titutional symptoms Physical Exam Physical Exam: PHYSICAL EXAMINATION Last 24h vital signs reviewed, see documentation in flowsheet General: comfortable appearing, no distress, sitting in bed HEENT: Normocephalic, atraumatic, pupils round and equal, sclerae anicteric, no conjunctival injection, moist mucus membranes Lungs: normal work of breathing, no wheezing, fine distant crackles bilaterally posteriorly with some clearing in apices and anteriorly Heart: Regular rate and rhythm, no murmurs. No JVD Abdomen: Soft, nontender, nondistended. Bowel sounds present. Extremities: Warm, dry, well-perfused. No extremity edema. Neuro: Alert and oriented x 4, face symmetric, moves 4 extremities well Psych: Normal affect and behavior Results & Data Results & Data Vital Signs (Past 12 Hours) Vital Signs Temp Pulse Pulse Resp BP Pulse Ox O2 Del Method 09/20/23 16:00 36.6 C 63 20 156/85 H 92 Nasal Cannula 09/20/23 15:45 58 L 09/20/23 15:24 88 18 93 Nasal Cannula 09/20/23 12:48 86 17 92 Room Air 09/20/23 12:27 91 Room Air 09/20/23 10:31 36.4 C L 63 19 130/77 96 Nasal Cannula 09/20/23 10:22 94 High Flow Nasal Cannula 09/20/23 10:00 Room Air 09/20/23 08:42 98 H 18 84 L 09/20/23 08:26 36.6 C 57 L 20 132/84 96 Room Air 09/20/23 07:22 62 O2 Flow Rate FiO2 09/20/23 16:00 2 09/20/23 15:45 09/20/23 15:24 2 09/20/23 12:48 21 09/20/23 12:27 09/20/23 10:31 2 09/20/23 10:22 2 09/20/23 10:00 09/20/23 08:42 09/20/23 08:26 09/20/23 07:22 PG Care Time/CCT Total # of Minutes Spent Total Time Spent with Patient: Total time spent is greater than 50% in coordination of care (as documented) at patient's floor/unit and/or counseling patient: Coding Level of Care Code 24307 SUB INP/OBS CARE 235MIN Diagnoses Acute hypoxic respiratory failure J96.01 Parainfluenzal pneumonia J12.2 AARON (acute kidney injury) N17.9 Hypertensive urgency I16.0 Type 2 diabetes mellitus E11.9
[2023-09-20] MEDS: GLUCOSE 40% GEL 15 GM TUBE PO PRN (19:13)
[2023-09-20] MEDS ORDERED: GLUCOSE 10 TAB/TUBE PO PRN (19:15)
[2023-09-20] MEDS ORDERED: GLUCAGON FOR INJ 1 MG VIAL IM PRN (19:15)
[2023-09-20] MEDS ORDERED: DEXTROSE 50% 50 ML SYRINGE IV PRN (19:15)
[2023-09-21 07:13] LABS: BUN Creatinine Ratio 24.1 (10-20); Calcium 8.9 mg/dl (8.6-10.3); Creatinine Clr Calc Pharmacy 112.7 ml/min; Est GFR (African American) 88.5 ml/min; Est GFR (Non-African American) 76.3 ml/min; Potassium 5.1 mmol/L (3.5-5.1)
--- NOTE | 2023-09-21 14:54 | Discharge Summary ---
Discharge Summary Date of Service September 21, 2023 Notes For Next Care Provider Held lisinopril 1 week because of AARON Consider repeat BMP on follow up Abnormal TSH - mildly low with normal fT4 - likely euthyroid sick, repeat TSH as outpatient Admission HPI Per Admitting Provider 57yo male with history of HTN, T2DM, CHRISTIE on BIPAP, and morbid obesity who presents with worsening URI and respiratory symptoms starting this past Saturday. Initial symptoms were runny nose, mild cough, and congestion. He noted a temperature of 99.9 yesterday at home. His appetite was decreased over the weekend. [place] a little achy yesterday/today. He had worsening shortness of breath overnight and into this morning. He had a pulse oximeter at home and checked his O2 sats -- they were in the 60s. This prompted him to come to the ER for evaluation. Upon arrival his O2 sat was 68% in room air. He was placed on NC O2 and was requiring 6 L to maintain his sats in the low 90s. he was ultimately changed to BIPAP 20/10 when his chest x-ray showed possible pulmonary edema. During my visit with him he was on BIPAP. Sats were low 90s. He was able to carry on a full conversation. Nursing staff report he voided 400cc following his IV lasix 40mg. He also was given 125mg of solumedrol IV along with a duoneb. He reported improvement in his breathing with the above. Principal Dx & Hospital Course #1 = Principal Diagnosis (1) Acute hypoxic respiratory failure: 57-year-old man with history of sleep apnea admitted with acute hypoxic respiratory failure related to parainfluenza pneumonia. presenting O2 sats in the 60s. Required bipap and high flow oxygen. thought to be volume overloaded and acute heart failure at presentation with severe hypertension and pulmonary edema pattern on chest x-ray, however, after IV two diuretics doses on day 1 he developed prerenal AARON. TTE was remarkable for diastolic dysfunction but normal CVP on day of admission so heart failure unlikely. Initially treated with steroids for 48h but stopped because no evidence of bronchospasm and is improving. Procalcitonin was minimally elevated with flat trend x 3 checks. Remained afebrile throughout and no leukocytosis. No evidence of bacterial pneumonia. Hypoxia steadily improved with reduction in O2 needs at rate of 50% per day, at time of discharge sats around 90% on room air and asymptomatic. Lung exam improved now only faint crackles throughout. Anticipate complete resolution over several days. (2) Parainfluenzal pneumonia: see above (3) AARON (acute kidney injury): developed AARON on CKD 2 on 09/16 after IV Lasix given on admission. Cr dejuan to peak of 2.33 -ordered renal US and was neg for obstruction, nonobstructing L nephrolithiasis and hepatic steatosis noted UA bland, FeNa 0.4% c/w prerenal -resolved as of 09/18 after IV fluids, PIPE/spironolactone were held, Cr back at baseline 1.5 on 09/18 and 1.1 on 09/20. -spironolactone resumed -continue holding PIPE for one week then resume (4) Hypertensive urgency: present in ED but improved with instituting BIPAP for respiratory failure, diuresis with lasix Takes the following meds at home - amlodipine 5mg daily, atenolol 100mg daily, lisinopril 20mg daily, spironolactone 25mg daily -cont atenolol, amlodipine, spironolactone. lisinopril held 1 week as above (5) Type 2 diabetes mellitus: A1c near goal 7.6 Plan Morbid obesity with BMI 45 CHRISTIE on nocturnal bipap Abnormal TSH - mildly low with normal fT4 - likely euthyroid sick, repeat TSH as outpatient HTN - see above HLD - fish oil Discharge Exam PHYSICAL EXAMINATION Last 24h vital signs reviewed, see documentation in flowsheet General: comfortable appearing, no distress, sitting in chair HEENT: Normocephalic, atraumatic, pupils round and equal, sclerae anicteric, no conjunctival injection, moist mucus membranes Lungs: normal work of breathing, no wheezing, extremely subtle crackles bilaterally posteriorly with some clearing in apices and anteriorly Heart: Regular rate and rhythm, no murmurs. No JVD Abdomen: Soft, nontender, nondistended. Bowel sounds present. Extremities: Warm, dry, well-perfused. trace extremity edema. Neuro: Alert and oriented x 4, face symmetric, moves 4 extremities well Psych: Normal affect and behavior Updated Medication List Medication Instructions Recorded Confirmed Type aspirin 81 mg tablet,delayed 81 mg PO QAM 06/29/19 09/16/23 History release multivitamin (Daily Multi-Vitamin 1 tab PO QAM 06/29/19 09/16/23 History tablet) omega-3 fatty acids 1,000 mg 1,000 mg PO QAM 06/29/19 09/16/23 History capsule (Fish Oil Concentrate) amlodipine 5 mg tablet 5 mg PO DAILY 09/16/23 09/16/23 History atenolol 100 mg tablet 100 mg PO DAILY 09/16/23 09/16/23 History lisinopril 20 mg tablet 20 mg PO DAILY 09/16/23 09/16/23 History metformin 500 mg tablet,extended 1,000 mg PO BID 09/16/23 09/16/23 History release 24 hr spironolactone 25 mg tablet 25 mg PO DAILY 09/16/23 09/16/23 History Hospital Stay Data Consultations 09/16/23 09:01 ED Decision to Admit Stat Diagnostic Imagining Performed 09/18/23 08:30 US Renal Bladder [US renal/blad retro comp] Urgent Chest X-Ray 09/16/23 07:41 SINGLE VIEW CHEST CLINICAL HISTORY: Dyspnea FINDINGS: 2 AP, portable, upright chest radiographs are obtained. No prior studies are available for comparison at the time of dictation. The heart is enlarged. There is pulmonary vascular congestion. Bilateral airspace opacities likely represent interstitial edema. No large pleural effusion or pneumothorax is seen. The bony thorax is grossly intact. IMPRESSION: 1. Cardiomegaly with evidence of congestive failure. 2. Bilateral airspace opacities likely represent pulmonary edema. Correlate clinically for evidence of a superimposed infectious/inflammatory pneumonitis. Radiographic follow-up to resolution is recommended. ACT 112: Negative or not required by law. Electronically signed by: Hal Cardoso M.D. 09/16/2023 8:15 AM Chest X-Ray 09/17/23 12:39 SINGLE VIEW CHEST CLINICAL HISTORY: Respiratory failure FINDINGS: An AP, portable, upright chest radiograph is compared to study dated 09/16/2023. The heart is enlarged noting atherosclerotic calcification of the thoracic area. There is evidence of congestive failure and pulmonary edema. No large pleural effusion or pneumothorax is seen. The skeletal structures are osteopenic. The bony thorax is grossly intact. IMPRESSION: Cardiomegaly with evidence of congestive failure and pulmonary edema. This has improved as compared to yesterday. ACT 112: Negative or not required by law. Electronically signed by: Hal Cardoso M.D. 09/17/2023 1:09 PM Renal Ultrasound 09/18/23 08:30 RENAL ULTRASOUND HISTORY: Acute kidney injury AARON COMPARISON: CT 05/01/2023 FINDINGS: Right kidney: 10.4 cm. No hydronephrosis. Normal corticomedullary differentiation. Mild cortical scarring of the interpolar right kidney redemonstrated. Left kidney: 10.5 cm. 1.4 cm nonobstructing calculus of the inferior pole left kidney again seen. No hydronephrosis. Normal corticomedullary differentiation and cortical thickness. Bladder: Partial distention. The bilateral ureteral jets were not identified. Hepatic steatosis. IMPRESSION: 1. Nonobstructing left nephrolithiasis. 2. No hydronephrosis. 3. Hepatic steatosis. ACT 112: Negative or not required by law. Electronically signed by: Devin Goodrich M.D. 09/18/2023 10:35 AM 09/16/23 07:45 09/21/23 05:56 Pending Results Patient Have Any Pending Studies at Discharge: No Discharge Instructions Given to Patient (Per Discharging Provider) You had pneumonia caused by parainfluenza virus I would like you to hold your lisinopril for one week to give your kidneys a break You will probably feel tired and more short of breath than usual for a week or two, but this should be steadily improving Seek medical attention if you have worsening shortness of breath, cough, fever It was a pleasure taking care of you in the hospital, Rachana Nieves MD Total Time Total Time Spent Total Time Spent (In Minutes): <30 minutes Coding Level of Care Code 50245 IN/OBS DISCH 30 MIN/LESS Diagnoses Acute hypoxic respiratory failure J96.01 Parainfluenzal pneumonia J12.2 AARON (acute kidney injury) N17.9 Hypertensive urgency I16.0 Type 2 diabetes mellitus E11.9
== END 2023-09-21 15:41 | disposition home or self-care (01) | DRG 189 ==
LOC: ED 07:26 → 2S 10:07 → SUATTDRO 10:07 → 2S 10:49